=== PATIENT | male | born 1925 | race Caucasian/White ===

== ENCOUNTER 2017-03-30 13:37 | Inpatient (IN) | payer MEDICARE, OTHER ==
[~2017-03-30] VITALS: Ht 175.3 cm; Wt 81.0 kg
[~2017-03-30 13:37] MED LIST: ASPI81TA2 PO; COR625 PO; FURO-3 PO; ZES10 PO
[2017-03-30 13:41] VITALS: BP 184/69; PULSE 62; RESP 20; O2SAT 97
--- NOTE | 2017-03-30 13:51 | ED.REPORT ---
HPI-Trauma Minor / Fall Date of Service Mar 30, 2017 ED Provider: Hammad Covarrubias DO Pt is an 89 year old male with a history of UTI, prostatectomy, hypertension, NH , CHF and pneumonia who is brought to the ED via EMS from assisted living due to a fall. The pt experienced a mechanical fall this morning that was not associated with dizziness. He "got his legs tangled up," lost his balance and fell, hitting the right side of his forehead. The pt admits to right thigh pain but denies headache, LOC or nausea. He takes aspirin daily. Nursing Notes Stated Complaint: GLF/RIGHT THIGH PAIN Chief Complaint: Multiple Trauma/Fall Nursing Notes Reviewed: Yes Allergies: Coded Allergies: No Known Allergies (Unverified Allergy, Unknown, 03/30/17) Scheduled Aspirin (Aspirin) 81 Mg Tablet 81 MG PO DAILY Carvedilol (Carvedilol) 6.25 Mg Tablet 6.25 MG PO BID Citalopram (Citalopram) 20 Mg Tablet 20 MG PO DAILY Furosemide (Furosemide) 40 Mg Tablet 40 MG PO DAILY Lisinopril (Lisinopril) 20 Mg Tablet 20 MG PO DAILY General Time Seen by MD: 13:50 Transferred From: custodial Chief Complaint Fall Hx Obtained From: Patient, EMS Arrived By: Ambulance Onset Occurred: 1 - 4 hours ago Symptom Duration: Since onset Location: Thigh right Quality: Painful Recent Healthcare: No recent hospitalization, Recent doctor visit Similar Sx Previous: No Past Medical History Past Medical History HTN UTI Kidney infection NH Pneumonia Depression Prostate, bladder and rectal cancer Blood tranfusions Reports: Congestive heart failure Past Surgical History Bladder removal Hernia repair Smoking History Former Smoker (quit at age 42) Social History Other Social History: Lives in [facility] Ambulatory Status Independent Review of Systems Respiratory: Denies: Non-productive cough, Shortness of breath Musculoskeletal: Reports: Extremity pain (Right thigh) Neurologic: Denies: Change LOC, Dizziness, Headache Complete sys rev & neg: except as marked. Cardiovascular: Denies: Chest pain GI: Denies: Abdominal pain, Nausea, Vomiting Physical Exam Initial Vital Signs Vital Signs (First) Date Time Temp Pulse Resp B/P Pulse Ox O2 Delivery O2 Flow Rate FiO2 03/30/17 13:41 36.9 62 20 184/69 97 Initial VS: Reviewed General/Constitutional: Awake, Alert, No acute distress Neck: Atraumatic, Supple, Full range of motion Head / Eyes: Atraumatic, Normocephalic, PERRL, EOMI ENT: Atraumatic, Airway patent, Mucous membranes moist Respiratory / Chest: Atraumatic, Breath sounds NL, Breath sounds = bilat, No respiratory distress Cardiovascular: Heart rate NL, Regular rhythm, Heart sounds NL Abdomen: Atraumatic, Soft, Non-tender Back: Atraumatic, Inspection NL, Full range of motion Upper Extremity / MS: Atraumatic, Inspection NL, Full range of motion Lower Extremity / Pelvis / MS: Neurologic intact, Vascular intact Tenderness over distal femur No laceration No abrasion Right leg externally rotated Skin: Color NL, No rash, Warm, Dry Neurologic: Oriented X3, Speech NL, No motor deficits, No sensory deficits Interpretation & Diagnostics Interpretation & Diagnostics: Femur X-Ray 2 views IMPRESSION: Minimally displaced intertrochanteric fracture of the right femur. Dictated by: Essie Bales M.D. on 03/30/2017 at 15:35 Approved by: Essie Bales M.D. on 03/30/2017 at 15:37 PROCEDURE: X-RAY CHEST ONE VIEW, PORTABLE ([id number]) INDICATIONS: preop, h/o chf TECHNIQUE: One view of the chest was acquired. COMPARISON: Located Within [facility], CR, CHEST 2VW, 12/03/2011, 10:03. Outside Film, CT, CHEST/ABD/PELVIS W/CON (PNL), 08/18/2012, 9:57. Located Within [facility] , CT, CT FEMUR RT WO CON, 03/30/2017, 15:54. Located Within [facility], CR, CHEST 1VW (PORTABLE), 12/30/2010, 2:23. FINDINGS: Surgical changes and devices: None. Lungs and pleura: Chronic interstitial prominence. No pleural effusions or pneumothorax. Lungs are clear. Mediastinum: Mediastinal contours appear normal. Heart size is normal. Bones and chest wall: No suspicious bony lesions. Overlying soft tissues appear unremarkable. IMPRESSION: No acute cardiopulmonary disease. Dictated by: Essie Bales M.D. on 03/30/2017 at 17:11 Approved by: Essie Bales M.D. on 03/30/2017 at 17:13 PROCEDURE: CT FEMUR RIGHT W/O CONTRAST ([id number]) INDICATIONS: fall, right femur pain TECHNIQUE: Noncontrast 3 mm axial sections acquired of the right femur, with coronal and sagittal reformats. For radiation dose reduction, the following was used: automated exposure control, adjustment of mA and/or kV according to patient size. COMPARISON: Located Within [facility], CR, XR FEMUR 2VW RT, 03/30/2017, 14:28. FINDINGS: Image quality: Excellent. Bones: There is a comminuted, intertrochanteric fracture of the proximal femur with minimal displacement. Soft tissues: Soft tissue swelling and pain around proximal femur consistent with soft tissue contusion. IMPRESSION: Comminuted, intertrochanteric fracture with minimal displacement. Dictated by: Essie Bales M.D. on 03/30/2017 at 17:07 Approved by: Essie Bales M.D. on 03/30/2017 at 17:10 Lab Results Interpretation Result Diagram: 03/31/17 0542 03/31/17 0542 ECG Interpretation ECG Interpretation: normal sinus with a rate of 77 prolonged UT interval at 237 anterior infarct, old no acute ST/T wave changes Time: 16:02 Interpreted by: ED physician Re-Eval/Medical Decision Med Decision/Clinical Course Initially evaluated the patient and discussed his fall. He has no ecchymosis, abrasion, or laceration over his head, has no head pain, his mentation is normal , and he is not on blood thinners. He also did not use consciousness. A lot of this I elected to forego a head CT, and focus only on the area of concern to the patient. It is unusual that he complained of distal femur pain. There is no fracture in this area, but rather in the intertrochanteric region. After the fracture was noted and I spoke with Dr. Lala, I ordered preoperative labs , chest x-ray, and EKG. She recommends/requests that an echocardiogram be done in the morning given his history of CHF for preoperative clearance, and also recommends that he have a preoperative CT of his femur which I ordered. The case was discussed with the hospitalist who agrees with the plan and will admit the patient. Surgery may be scheduled for tomorrow or Saturday. In the ER he was given Rhame 7.5 mg 1 and his pain improved Source of Hx: Old records Re-Evaluation/Progress #1: Time of Eval: 15:21 Re-Evaluation/Progress Note: Rechecked pt. Pt is unable to use his leg, and it is externally rotated. Re-Evaluation/Progress #2: Time of Eval: 15:45 Patient Status: Condition improved Re-Evaluation/Progress Note: Rechecked pt, who is stable. Discussed all results. Informed pt of plan for admission. Pt understands and agrees with plan for admission. All questions addressed. Consultation #1: Referral / Consult Name: Ihs Lala MD Consulted With: Orthopedic, Surgeon Call Returned at: 15:37 Product Safety Lead: Agrees with plan Note: Discusses case with Dr. Lala, Orthopedic surgeon. Discusses request for hospitalist admission. Echo for cardiac clearance, as well as a type in screen. Will see patient tomorrow. Consultation #2: Referral / Consult Name: Samuel William MD Consulted With: Hospitalist Call Returned at: 16:06 Product Safety Lead: Agrees with eval, Agrees with plan, Accepts admit Note: Spoke with Dr. William, hospitalist, regarding pt's case. Dr. William agrees with the evaluation and agrees to admit the pt. Counseled Regarding: Diagnosis, Lab results, Need for admission Discharge & Departure Impression: Primary Impression: Nondisplaced intertrochanteric fracture of femur Encounter type: initial encounter Fracture type: closed Laterality: right Qualified Code: S72.144A - Nondisplaced intertrochanteric fracture of right femur, initial encounter for closed fracture Additional Impressions: Hypertension Hypertension type: essential hypertension Qualified Code: I10 - Essential ( primary) hypertension Chronic renal insufficiency Chronic kidney disease stage: unspecified stage Qualified Code: N18.9 - Chronic kidney disease, unspecified Disposition: ADMITTED TO HOSPITAL Discharge Condition All VS Reviewed: Yes Condition: Stable Referrals: Edwige Stern MD (PCP) Scribe Attestation Portions of this note were transcribed by Belkys Fuentes and Rufina De Los Santos. I, Dr. Covarrubias personally performed the history, physical exam and medical decision -making; I reviewed and confirmed the accuracy of the information in the transcribed note. copies to: Edwige Stern MD, Gary R DO Mar 30, 2017 13:51 Belkys Fuentes Mar 30, 2017 14:06 RUFINA DE LOS SANTOS Mar 30, 2017 15:55
[2017-03-30] MEDS ORDERED: CITA20TA11 PO (13:53)
[2017-03-30] MEDS ORDERED: ASPI-973 PO (13:58)
[2017-03-30] MEDS ORDERED: CARV6.252 PO (13:58)
[2017-03-30] MEDS ORDERED: FURO40TA4 PO (13:58)
[2017-03-30] MEDS ORDERED: LISI-567 PO (13:58)
[2017-03-30] MEDS ORDERED: HYDROcodone-APAP 7.5-325 mg Tablet PO ONE (14:00)
--- NOTE | 2017-03-30 15:38 | DRSVH ---
PROCEDURE: X-RAY RIGHT FEMUR, TWO VIEWS ([id number]) INDICATIONS: fall, r thigh pain TECHNIQUE: 2 views of the femur were acquired. COMPARISON: None. FINDINGS: Bones: There is intratrochanteric fracture of the right femur with minimal displacement. The hip nathalie nt is anatomically aligned. There is moderate degenerative joint disease in the right hip. Osteopenia . No suspicious bony lesions. Soft tissues: No suspicious soft tissue calcifications or masses. IMPRESSION: Minimally displaced intertrochanteric fracture of the right femur. Dictated by: Essie Bales M.D. on 03/30/2017 at 15:35 Approved by: Essie Bales M.D. on 03/30/2017 at 15:37
[2017-03-30] MEDS ORDERED: HYDROmorphone 0.5 mg/0.5 mL iSecure Syringe IVPUSH PRN ×2 (15:40→17:10)
[2017-03-30] MEDS ORDERED: HYDROcodone-APAP 5-325 mg Tablet PO PRN (16:10)
[2017-03-30] MEDS ORDERED: Alum-Mag Hydrox-Simeth 30 mL Suspension PO PRN (16:10)
[2017-03-30] MEDS ORDERED: Ondansetron 2 mg/mL 2 mL Inj IVPUSH PRN (16:10)
[2017-03-30] MEDS ORDERED: Polyethylene Glycol (PEG) 17 Gm Powder PO PRN (16:10)
--- NOTE | 2017-03-30 16:36 | PCM.HPMED ---
Subjective Date of Service Mar 30, 2017 Primary Provider: Admitting Physician: Primary Care Physician: Edwige Stern MD Attending Physician: History of Present Illness: Mr. 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 Patient said he was walking when he tripped and fell. He said he did hit his head but gently. CXR in ER revealed right intratrochantric fracture. He denied any syncope, chest pain or shortness of breath. He was not sure if he has CHF, however it has been mentioned in the chart. He denies any other major medical issues at this point. He mentioned he uses stomies for urination as well as defecation. Allergies Coded Allergies: No Known Allergies (Unverified Allergy, Unknown, 03/30/17) Constitutional: No: Chills, Fever, Malaise, Other, Sweats, Weakness Eyes: No: Conjunctivae inflammation, Eyelid inflammation, Other, Pain, Redness , Vision change ENT: No: Ear discharge, Ear pain, Mouth pain, Mouth swelling, Nose congestion, Nose discharge, Nose pain, Other, Throat pain, Throat swelling Respiratory: No: Cough, Dry, Hemoptysis, Other, Pleuritic Pain, SOB with excertion, Shortness of breath, Sputum, Wheezing, Wheezing Cardiovascular: No: Chest Pain, Edema, Lt Headedness, Orthopnea, Other, Palpitations, Paroxysmal Noc. Dyspnea Gastrointestinal: : Other (as per HPI) Genitourinary: Positive for: Other (as per HPI) Musculoskeletal: : other (as per HPI) Skin: No: Bruising, Jaundice, Lesions, Other, Rash Neurological: No: Change in speech, Confusion, Incoordination, Numbness, Other , Seizures, Weakness Home Meds Reported Medications Lisinopril 20 Mg Ostskr91 Mg PO DAILY 30 Days Ref 0 03/30/17 Furosemide 40 Mg Lzhiaj84 Mg PO DAILY 03/30/17 Carvedilol 6.25 Mg Tablet6.25 Mg PO BID Ref 0 03/30/17 Aspirin 81 Mg [id number] Mg PO DAILY Ref 0 03/30/17 Citalopram 20 Mg Btuaxj70 Mg PO DAILY Ref 0 03/30/17 Discontinued Reported Medications Furosemide-Expunged Drug, Do Not Renew! 40 Mg Whhyjm08 Mg PO DAILY #30 TAB 40 MG DAILY 01/20/13 Carvedilol-Expunged Drug, Do Not Renew! 6.25 Mg Tablet6.25 Mg PO BID 01/20/13 Aspirin-Expunged Drug, Do Not Renew! 81 Mg Tab81 Mg PO DAILY 01/20/13 Lisinopril-Expunged Drug, Do Not Renew! 10 Mg Uvlhkv01 Mg PO DAILY 01/20/13 PMH HTN UTI Kidney infection [place] Pneumonia Depression Prostate, bladder and rectal cancer (squamous cell). Blood tranfusions Reports: Congestive heart failure Surgical History Bladder/Prostate/Anus/Rectum removal Hernia repair Social History Hx Alcohol Use: No Hx Substance Use: No Hx Tobacco Use: Yes (quit at age 42) Smoking Status: Former Smoker (quit at age 42) Exam Vital Signs Vital Sign - Last Date Time Temp Pulse Resp B/P Pulse Ox O2 Delivery O2 Flow Rate FiO2 03/30/17 13:41 36.9 62 20 184/69 97 Exam Initial VS: Reviewed General/Constitutional: Awake, Alert, No acute distress Neck: Atraumatic, Supple, Full range of motion Head / Eyes: Atraumatic, Normocephalic, PERRL, EOMI ENT: Atraumatic, Airway patent, Mucous membranes moist Respiratory / Chest: Atraumatic, Breath sounds NL, Breath sounds = bilat, No respiratory distress Cardiovascular: Heart rate NL, Regular rhythm, Heart sounds NL Abdomen: Atraumatic, Soft, Non-tender. Stomies present, clean, non infectious Back: Atraumatic, Inspection NL, Full range of motion Upper Extremity / MS: Atraumatic, Inspection NL, Full range of motion Lower Extremity / Pelvis / MS:Right hip pain with motion Lab and Diagnostics X-Rays, CTs and MRIs XR IMPRESSION: Minimally displaced intertrochanteric fracture of the right femur. Assessment & Plan Mr. 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 There is mild to moderate global hypokinesis of the left ventricle. - CXR noted , self read: no pleural effusions or cephalization observed - EKG noted , no acute changes > HTN - exacerbated by pain - pain control + home meds - hydralazine prn if systolic >180, diastolic> 110 > h/0 squamous cell carcinoma s/p resection of bladder, anus, rectum - stomies present, clear as needed > Depression - continue home meds Inpatient admission, likely will stay > 2 days due to complication of this disease process. Pain Evaluation: Adequate Pain Control VTE Prophylaxis: SCDs Resuscitation Status: DNR/DNI:Do Not Resuscitate/Intubate Time spent 35 mins Samuel William MD Mar 30, 2017 16:12
[2017-03-30] MEDS ORDERED: hydrALAZINE 20 mg/mL Inj IV PRN (16:45)
[2017-03-30 16:50] VITALS: BP 149/60; PULSE 75; O2SAT 92
--- NOTE | 2017-03-30 17:11 | DRSVH ---
PROCEDURE: CT FEMUR RIGHT W/O CONTRAST ([id number]) INDICATIONS: fall, right femur pain TECHNIQUE: Noncontrast 3 mm axial sections acquired of the right femur, with coronal and sagittal reformats. Fo r radiation dose reduction, the following was used: automated exposure control, adjustment of mA and /or kV according to patient size. COMPARISON: [facility], CR, XR FEMUR 2VW RT, 03/30/2017, 14:28. FINDINGS: Image quality: Excellent. Bones: There is a comminuted, intertrochanteric fracture of the proximal femur with minimal displacem ent. Soft tissues: Soft tissue swelling and pain around proximal femur consistent with soft tissue contusi on. IMPRESSION: Comminuted, intertrochanteric fracture with minimal displacement. Dictated by: Essie Bales M.D. on 03/30/2017 at 17:07 Approved by: Essie Bales M.D. on 03/30/2017 at 17:10
--- NOTE | 2017-03-30 17:15 | DRSVH ---
PROCEDURE: X-RAY CHEST ONE VIEW, PORTABLE ([id number]) INDICATIONS: preop, h/o chf TECHNIQUE: One view of the chest was acquired. COMPARISON: [facility], CR, CHEST 2VW, 12/03/2011, 10:03. Outside Film, CT, CHEST/ABD/PE LVIS W/CON (PNL), 08/18/2012, 9:57. [facility], CT, CT FEMUR RT WO CON, 03/30/2017, 15:54. [facility], CR, CHEST 1VW (PORTABLE), 12/30/2010, 2:23. FINDINGS: Surgical changes and devices: None. Lungs and pleura: Chronic interstitial prominence. No pleural effusions or pneumothorax. Lungs are clear. Mediastinum: Mediastinal contours appear normal. Heart size is normal. Bones and chest wall: No suspicious bony lesions. Overlying soft tissues appear unremarkable. IMPRESSION: No acute cardiopulmonary disease. Dictated by: Essie Bales M.D. on 03/30/2017 at 17:11 Approved by: Essie Bales M.D. on 03/30/2017 at 17:13
[2017-03-30 17:21] LABS: BASOPHILS % (AUTO) 0.2 % (0-3); EOSINOPHILS % (AUTO) 0.3 % (0-5); MONOCYTES % (AUTO) 4.9 % (4-12); Mean Corpuscular Hemoglobin 28.8 pg (27.0-35.0); Mean Corpuscular Volume 87.2 fL (81-100); NEUTROPHILS % (AUTO) 89.4 % (40-74); Platelet Count 162 bil/L (150-400)
[2017-03-30 17:45] LABS: Magnesium 2.1 mg/dL (1.6-2.6)
[2017-03-30 17:48] VITALS: BP 181/80; PULSE 75; RESP 17; O2SAT 94
[2017-03-30] MEDS: HYDROcodone-APAP 7.5-325 mg Tablet PO PRN (19:21)
[2017-03-30] MEDS: HYDROmorphone 0.5 mg/0.5 mL iSecure Syringe IVPUSH PRN (20:14)
[2017-03-30 20:27] LABS: APPEARANCE,URINE HAZY (CLEAR,HAZY); COLOR,URINE YELLOW (YELLOW); OCCULT BLOOD,URINE TRACE (NEGATIVE)
[2017-03-30 20:28] LABS: UROBILINOGEN,URINE NORMAL (NORMAL)
[2017-03-30 20:40] VITALS: BP 163/75; PULSE 87; RESP 16; O2SAT 92
[2017-03-30 21:37] LABS: APPEARANCE,URINE HAZY (CLEAR,HAZY); COLOR,URINE YELLOW (YELLOW); OCCULT BLOOD,URINE NEGATIVE (NEGATIVE); UROBILINOGEN,URINE NORMAL (NORMAL)
[2017-03-31 01:00] VITALS: BP 173/78; PULSE 69; RESP 16; O2SAT 94
[2017-03-31] MEDS: HYDROmorphone 0.5 mg/0.5 mL iSecure Syringe IVPUSH PRN ×5 (01:19→21:29)
--- NOTE | 2017-03-31 05:39 | NUR ---
Pain Pt. reporting pain at fracture site. IV dilaudid 1mg given and effective for pain. Will continue to monitor.
[2017-03-31 06:00] VITALS: BP 142/52; PULSE 70; RESP 16; O2SAT 92
[2017-03-31 06:28] LABS: Mean Corpuscular Hemoglobin 29.2 pg (27.0-35.0); Mean Corpuscular Volume 88.9 fL (81-100); Platelet Count 141 bil/L (150-400)
[2017-03-31 06:29] LABS: BASOPHILS % (AUTO) 0.6 % (0-3); EOSINOPHILS % (AUTO) 2.6 % (0-5); MONOCYTES % (AUTO) 13.7 % (4-12); NEUTROPHILS % (AUTO) 75.5 % (40-74)
[2017-03-31 06:38] LABS: INR 1.01 ratio
[2017-03-31] MEDS ORDERED: 0.9% Sodium Chloride 1,000 ML IV SCH (07:30)
[2017-03-31 08:42] VITALS: BP 155/72; PULSE 73; RESP 18; O2SAT 94
--- NOTE | 2017-03-31 09:21 | PCM.PNMED ---
Subjective Date of Service Mar 31, 2017 Subjective Patient seen and examined. Pain controlled. Vitals noted. Exam Vital Signs Vital Sign - Last Date Time Temp Pulse Resp B/P Pulse Ox O2 Delivery O2 Flow Rate FiO2 03/31/17 08:42 73 18 155/72 94 Room Air 03/31/17 06:00 36.9 Exam General/Constitutional: Awake, Alert, No acute distress ENT: Atraumatic, Airway patent, Mucous membranes moist Respiratory / Chest: Atraumatic, Breath sounds NL, Breath sounds = bilat, No respiratory distress Cardiovascular: Heart rate NL, Regular rhythm, Heart sounds NL Abdomen: Atraumatic, Soft, Non-tender. Stomies present, clean, non infectious Upper Extremity / MS: Atraumatic, Inspection NL, Full range of motion Lower Extremity / Pelvis / MS:Right hip pain with motion Lab and Diagnostics Result Diagram: 03/31/1742 03/31/17541 X-Rays, CTs and MRIs XR IMPRESSION: Minimally displaced intertrochanteric fracture of the right femur. CT LE IMPRESSION: Comminuted, intertrochanteric fracture with minimal displacement. Assessment & Plan Mr. Alberts is a 89 yo male with pmh of squamous cell carcinoma (bladder) s/p resection of prostate, bladder, rectum and anus, HTN, who is being admitted for a hip fracture(right side) > Right hip fracture - XR and CT noted as above - pain control - ortho consulted from ER , recs: cardiac echo,NPO - will check Vit D levels > h/o chf - not in acute exacerbation - echo from 12/2015 : ejection fraction is estimated to be 40-45%, which slightly improved since prior study. There is mild to moderate global hypokinesis of the left ventricle. - CXR noted , self read: no pleural effusions or cephalization observed - EKG noted , no acute changes > CKD, with possible FELICE - basline Cr unknown - Cr trended up 1.47 > 1.63 - will continue to monitor > H/O UTI - no signs and symptoms - moderate bacteria - considering h/o bladder surgery, stomy, and utis, will treat prophylactically as discussed with ortho > HTN - exacerbated by pain - pain control + home meds - hydralazine prn if systolic >180, diastolic> 110 > h/0 squamous cell carcinoma s/p resection of bladder, anus, rectum - stomies present, clear as needed > Depression - continue home meds Inpatient admission, likely will stay > 2 days due to complication of this disease process. VTE Prophylaxis: SCDs VTE Mechanical Devices: Intermittant Pneumatic CD Resuscitation Status: DNR/DNI:Do Not Resuscitate/Intubate Time spent 35 mins Samuel William MD Mar 31, 2017 09:21
--- NOTE | 2017-03-31 10:16 | DRSVH ---
[facility] [address] [place] [address] Echocardiogram Report Name: LEATHA ANTHONY JStudy Date : 03/31/2017 He ight: 71 in Hospital Exam Location: [facility] ight: 178 lb Gender: Male BS A: 2.0 m2 : 1925 Age: 89 yrs BP : 142/52 mmHg Reason For Study: Pre-surgical evaluation Ordering Physician: Julio Cesar Riggsist Performed By: Yesi Bejarano Referring Physician: Gabo Colón Interpretation Summary 1. MIldly dilated left ventricle with mildly increased wall thickness and an estimated EF of 50% 2. Normal right ventricular size and systolic function. 3. Evidence for mild aortic stenosis and mild insufficiency When compared to the previous study, no significant change Procedure: A two-dimensional transthoracic echocardiogram with color flow and Doppler was performed. Most of the acoustic windows were suboptimal, but the best imaging was obtained from the apical window. Comparison is made with the echocardiogram of 12/29/2015. The patient was in normal sinus rhythm during the exam. Left Ventricle: The left ventricle is mildly dilated. Left ventricular wall thickness is mildly increased. Left ventricular ejection fraction is estimated to be 50%. There are no obvious focal wall motion abnormalities noted but poor endocardial definition reduces the sensitivity for the detection of such. Assessment of diastolic parameters indicates a relaxation abnormality of the left ventricle, consistent with normal filling pressures. Right Ventricle: The right ventricle is normal in size and function. Atria: The left atrium is mildly dilated. The right atrium is normal in size. Mitral Valve: The leaflets appear mildly thickened with mild restriction of excursion. There is trace mitral regurgitation. Aortic Valve: The aortic valve is not well visualized. The aortic valve is mildly calcified. The calculated aortic valve area is 1.9 cm2. The peak aortic velocity is 2.3 m/sec. The aortic valve mean gradient is 12 mmHg. The peak aortic velocity on the previous exam was 2.2 m/sec. There is mild aortic regurgitation. Tricuspid Valve: The tricuspid valve is not well visualized, but is grossly normal. Pulmonary artery pressures cannot be estimated because of the lack of a measurable TR jet velocity. Pulmonic Valve: The pulmonic valve is not well visualized. Great Vessels: The aortic root is at the upper limits of normal in size. The ascending aorta is normal in size. The IVC is of normal diameter and collapses greater than 50% with a sniff. This suggests a low right atrial pressure of 3 mm Hg. Pericardium/ Pleura There is no pericardial effusion. MMode/2D Measurements & Calculations LVIDd: 5.9 cm LA A2 area RA long axis: 6.1 cm LVOT diam: 2.1 cm LVIDs: 4.8 cm AoV Openin.2 cm FS: 19.2 % RA area: 20.4 cm Ao root diam: 4.0 cm IVSd: 1.5 cm LA A4 area RA vol: 57.8 ml Aortic Jxn: 3.3 cm LVPWd: 1.1 cm RA : 29.4 ml/m2 asc Aorta Diam: 3.4 cm LA length (vol) LA vol: 92.6 ml LA vol index IVC diam: 1.4 cm LVAd ap4 LVAd ap2 LV dean. diameter/BSA LV sys. diameter/BSA : 33.8 2m : 29.4 cm (cm/m^2): 3.0 (cm/m^2): 2.4 LVLd ap2: 8.6 cm EDV(MOD-sp2) EDV(sp2-el) ESV(MOD-sp2) EF(MOD-sp2) RVD1 (basal) TAPSE: 2.6 cm Doppler Measurements & Calculations Ao V2 max MV E max anish MV E/A: 0.61 MV dec time: 0.36 sec : 229.4 cm/sec : 79.8 cm/sec Med Peak E' Anish Ao max PG MV A max anish : 21.1 mmHg : 130.8 cm/sec E/E' med: 18.9 Ao mean PG MV P1/2t Lat Peak E' Anish : 12.4 mmHg : 107.5 msec LVOT Max Anish E/E' lat: 10.9 : 113.3 cm/sec E/e' average NANCY(I,D): 1.9 cm sev ratio: 0.51 AI P1/2t : 478.1 msec AI dec slope : 272.9 cm/s2c MV P1/2t max anish Ao V2 mean LV V1 max PG NANCY indexed to BSA : 168.1 cm/sec (cm^2/m^2): 0.94 Ao V2 VTI: 53.7 cmLV V1 VTI MVA(P1/2t): 2.0 cm2 : 27.7 cm NANCY(V,D): 1.8 cm2 Reading Physician:10:15 AM
--- NOTE | 2017-03-31 10:56 | CONS ---
[address] [address] CONSULTATION REPORT PATIENT: LEATHA ANTHONY : 1925 MR#: [id number] ADMIT: 03/30/2017 JOB ID: [id number] DATE OF SERVICE: 03/31/2017 CHIEF COMPLAINT: I was asked to see this 89-year-old male in orthopedic consultation by Dr. Hammad Covarrubias in the emergency department and subsequently by Dr. Samuel William on the hospitalist service for comminuted right intertrochanteric femoral fracture. This patient who does have some additional medical problems fell while in assisted living while he was out walking. His shoe stuck on the concrete and he fell sustaining a comminuted right intertrochanteric femoral fracture. The patient denied any loss of consciousness, headache, or dizziness. CURRENT MEDICATIONS: Include: 1. Lisinopril. 2. Lasix. 3. Carvediol. 4. Aspirin. 5. Citalopram. ALLERGIES: None. MEDICAL HISTORY: Pertinent for history of UTI, hypertension, kidney infection, prior MN, pneumonia, depression, prostate/bladder cancer, rectal cancer, squamous cell status post resection, prior blood transfusions, and history of congestive heart failure. He has also had a hernia repair along with the bladder, prostate, anus, and rectal resections. SOCIAL HISTORY: The patient does not smoke or drink. He lives in assisted living. REVIEW OF SYSTEMS: HEENT: No headache or dizziness. No acute visual changes. Respiratory: No shortness of breath. Cardiovascular: No chest pain. GI: No change in GI issues. : History of urinary tract infections. Musculoskeletal pain in the right hip. Neurologic no lateralizing neurologic signs. PHYSICAL EXAMINATION: Male 175 cm, 81 kg. The patient is alert and oriented. Right leg is just slightly shortened. Peripheral pulses are full. Motor and sensory testing intact. The patient is comfortable in bed as long he is not moving his hip. IMAGING: X-rays of the pelvis and CT scan show a comminuted right intertrochanteric femoral fracture. X-rays down to the distal portion of the femur showed no other abnormalities. The patient has had a prior cardiac echo in 2016 which showed a cardiac ejection fracture of 40 to 45%. A repeat cardiac echo has been ordered and done and just official read pending. Chest x-ray showed no acute pulmonary disease. Femur x-rays and CT scan showed comminuted right intertrochanteric femoral fracture with mild displacement. LABORATORY TESTING: White count 8900, hemoglobin 12.8, hematocrit 38.8, and platelet count 862,000 on admission. Repeat labs today white count 5400, hemoglobin 12.1, hematocrit 36.8, and platelet count 141,000. Electrolytes on admission: Sodium 140, potassium 4.2, chloride 102, CO2 of 21, BUN 32, creatinine 1.47. Liver function tests within normal limits. Repeat electrolytes on March 31: Sodium 140, potassium 4.5, chloride 101, CO2 25, BUN 37, creatinine 1.63, and glucose of 100. Urinalysis on admission showed many bacteria. Urine culture needs to be sent. PT of 10.7. INR 1.00. Repeat PT 10.8, INR 1.01. IMPRESSION: 1. Comminuted right intertrochanteric femoral fracture. 2. History of hypertension. 3. History of congestive heart failure in the past. 4. Depression treated. 5. Probable urinary tract infection. PLAN: The patient will require open reduction and internal fixation of the fracture. Currently there are multiple surgeries being planned for surgery today. Due to the time constraints rather than trying to do this patient very late tonight we will plan to do him in the trauma block tomorrow with a locked intramedullary heidy. I have explained the risks of bleeding, infection, pain, and stiffness and possibility for damage to surrounding neurovascular structures as well as potential for delayed union, and potential for additional surgery in the future. Hopefully all these risks will be minimal. There is also the risk for DVT, pulmonary emboli, MN, and a cardiopulmonary event. Surgical consent has been signed. I will also discuss the case again with the hospitalist service since I believe the patient is going to need some antibiotic treatment for anticipated urinary tract infection with his current urinalysis.
[2017-03-31] MEDS: HYDROcodone-APAP 7.5-325 mg Tablet PO PRN ×2 (14:21→18:21)
[2017-03-31] MEDS: cefTRIAXone Inj 1,000 MG in Dextrose 5% Minibag Plus 50 ML IV SCH (14:22)
[2017-03-31 15:18] VITALS: BP 156/62; PULSE 86; RESP 18; O2SAT 91
--- NOTE | 2017-03-31 15:32 | NUR ---
Social Work- Initial Assessment/ Multidisciplinary Rounds Data: See Initial Assessment and Advance Directive Intervention for additional information. Pt to receive surgery tomorrow. Pt is likely to require SNF at d/c given nature of admission. PT will evaluate pt after surgery. Pt is a 89 year old admitted 03/31/17 for right intertrochanteric fracture per H&P. Pt's insurance is [email or web address]. Pt's PCP is Haleigh Stern MD. Pt's readmit risk score is not listed at this time. SW met with pt at bedside regarding discharge plan, SW role explained. Pt alert and oriented x3. Pt's capacity for self-care assessed. Pt resides in [place] in a home alone. Pt is independent with ADLs and self-care. Pt uses a cane at baseline. Pt drives. Pt has no history with services. Pt has history with a SNF in [place]. Pt has DPOA on file. SW discussed likely SNF recommendation with pt and pt is agreeable, was expecting it. No SNF orders have been received at this time. SW provided Discharge planning Checklist and requested that pt contact [employer]. SW provided phone number and plan on whiteboard. Pt agreeable. SW will continue to follow. Assessment: Pt who is independent with ADLs and self-care, likely to require SNF at d/c. Plan: Pt is likely to require SNF at d/c, pt is agreeable and was expecting this. No SNF choice has been made, no orders received at this time. PT will evaluate pt after surgery. SW will continue to follow for d/c planning needs. Teresa Hodges [facility] Addendum: 03/31/17 at 1537 by KENDRA HODGES Amended: Links added.
--- NOTE | 2017-03-31 19:40 | NUR ---
Activity Pt NPO for anticipated OR; pt stating hungry and family anxious re: surgery - frequently asking when surgery time is. Attempted to keep family as informed as possible, aware that she will not be going to OR until later in evening. Pt denies pain/nausea; states she is hungry. Minimal mobility d/t dizziness, RADHA in place and voiding per BSC. Await OR, care continues. Addendum: 03/31/17 at 1941 by WILMER SHERIDAN RN WRONG PATIENT
--- NOTE | 2017-03-31 19:45 | NUR ---
Comfort/OR plan Pt stating pain 5/10 continuously; states 5 is okay number but pain with movement. Surgery pushed to 04/01/17 - able to eat lunch/dinner, aware of NPO at midnight. Pt stating uncomfortable in the bed as he keeps slipping down. Offered new bed to pt. Refused and later agreeable. Pt placed on P500 bed, vargas in place. Call light in reach. Pleasant and cooperative with care. Await OR tomorrow. Care continues.
[2017-03-31 20:03] VITALS: BP 164/70; PULSE 92; RESP 18; O2SAT 94
[2017-04-01] VITALS (10 sets, daily range): BP systolic 104–200; BP diastolic 51–70; PULSE 64–92; RESP 16–21; O2SAT 94–98
--- NOTE | 2017-04-01 05:43 | NUR ---
HTN Pt. continues to have HTN during this shift with 200/70 @ 0500 so the On-Call Physician was paged. He order one dose of Coreg. All other VSS and WCTM.
[2017-04-01 05:45] LABS: Mean Corpuscular Volume 89 fL (81-100)
[2017-04-01 05:46] LABS: BASOPHILS % (AUTO) 0.4 % (0-3); EOSINOPHILS % (AUTO) 4.3 % (0-5); MONOCYTES % (AUTO) 12.6 % (4-12); NEUTROPHILS % (AUTO) 74.9 % (40-74); Platelet Count 133 bil/L (150-400)
[2017-04-01] MEDS ORDERED: CeFAZolin Inj 2 GM in IV Premix 1 EACH IV ONE ×2 (06:00→14:00)
--- NOTE | 2017-04-01 08:57 | PCM.PNMED ---
Subjective Date of Service Apr 01, 2017 Subjective Patient seen and examined. He is doing ok. One time elevated BP noted. Normalized. Exam Vital Signs Vital Sign - Last Date Time Temp Pulse Resp B/P Pulse Ox O2 Delivery O2 Flow Rate FiO2 04/01/17 08:29 36.6 64 18 140/52 94 Room Air Intake and Output 03/31/17 03/31/17 04/01/17 Cumulative From/Thru 15:00 23:00 07:00 03/30/17 13:41 - 04/01/17 05:57 Intake Total 361 ml 450 ml 600 ml 1411 ml Output Total 600 ml 450 ml 775 ml 1825 ml Balance -239 ml 0 ml -175 ml -414 ml Intake Oral 300 ml 450 ml 600 ml 1350 ml IV Total 61 ml 61 ml Output Urine Total 450 ml 450 ml 675 ml 1575 ml Stool Total 150 ml 100 ml 250 ml # Bowel Movements 1 1 Exam General/Constitutional: Awake, Alert, No acute distress ENT: Atraumatic, Airway patent, Mucous membranes moist Respiratory / Chest: Atraumatic, Breath sounds NL, Breath sounds = bilat, No respiratory distress Cardiovascular: Heart rate NL, Regular rhythm, Heart sounds NL Abdomen: Atraumatic, Soft, Non-tender. Stomies present, clean, non infectious Upper Extremity / MS: Atraumatic, Inspection NL, Full range of motion Lower Extremity / Pelvis / MS:Right hip pain with motion Lab and Diagnostics Result Diagram: 04/01/17 0525 04/01/17 0525 X-Rays, CTs and MRIs XR IMPRESSION: Minimally displaced intertrochanteric fracture of the right femur. CT LE IMPRESSION: Comminuted, intertrochanteric fracture with minimal displacement. Cardiac Echo Impressions Interpretation Summary 1. MIldly dilated left ventricle with mildly increased wall thickness and an estimated EF of 50% 2. Normal right ventricular size and systolic function. 3. Evidence for mild aortic stenosis and mild insufficiency When compared to the previous study, no significant change Assessment & Plan Mr. Alberts is a 89 yo male with pmh of squamous cell carcinoma (bladder) s/p resection of prostate, bladder, rectum and anus, HTN, who is being admitted for a hip fracture(right side) > Right hip fracture - XR and CT noted as above - pain control - ortho consulted from ER , surgery planned for today - will check Vit D levels > h/o chf - not in acute exacerbation - echo as noted above - CXR noted , self read: no pleural effusions or cephalization observed - EKG noted , no acute changes > CKD, with possible FELICE, resolved - basline Cr likely 1.4-1.6 - Cr trended up 1.47 > 1.63 > 1.53 - will continue to monitor > H/O UTI - no signs and symptoms - moderate bacteria - considering h/o bladder surgery, stomy, and utis, will treat prophylactically as discussed with ortho > HTN - exacerbated by pain - pain control + home meds - hydralazine prn if systolic >180, diastolic> 110 > h/0 squamous cell carcinoma s/p resection of bladder, anus, rectum - stomies present, clear as needed > Depression - continue home meds Inpatient admission, likely will stay > 2 days due to complication of this disease process. VTE Prophylaxis: SCDs VTE Mechanical Devices: Intermittant Pneumatic CD Resuscitation Status: DNR/DNI:Do Not Resuscitate/Intubate Time spent 35 mins Samuel William MD Apr 01, 2017 08:57
[2017-04-01] MEDS: cefTRIAXone Inj 1,000 MG in Dextrose 5% Minibag Plus 50 ML IV SCH (11:59)
[2017-04-01] MEDS: HYDROmorphone 0.5 mg/0.5 mL iSecure Syringe IVPUSH PRN ×2 (11:59→22:10)
--- NOTE | 2017-04-01 13:15 | NUR ---
Off Unit to OR at 1300. A&Ox3, VSS, IV SL, Ostomies emptied, SCDs on, Consent signed 03/31/17, Watch and Lif[employer] necklace at bedside, NPO since midnight, Pain minute, Left unit via bed, Son present and went up to preop suite with pt. Chart with pt. Report given to OR, JOHNNY Patel prior to pt pickup. Dr. Lala present in room prior to pickup to answer any remaining questions. Await pt return. Addendum: 04/01/17 at 1951 by WILMER SHERIDAN RN Returned to unit at ~1720 via bed. A&O, little confused as to why he was here, after settled into bed. talking, but tired. Dressing to hip CDI - two bulky abd dressings with hypafix. IV SL patent. Ice to hip. Stated not hungry - wanting to sleep. Stating back pain - repositioned onto right side. Addendum: 04/01/17 at 1952 by WILMER SHERIDAN RN on 2L NC = ASSISTANT CHIEF NURSING OFFICER requested to find CPOx. CAll light in reach. Care continues.
[2017-04-01] MEDS ORDERED: Phenylephrine 10,000 mCg/mL Inj ONE (13:47)
[2017-04-01] MEDS ORDERED: Neostigmine 1 mg/mL 10 mL Inj ONE ×2 (13:47→15:48)
[2017-04-01] MEDS ORDERED: Propofol 10 mg/mL 20 mL Inj ONE ×2 (13:47→15:48)
[2017-04-01] MEDS ORDERED: Rocuronium 10 mg/mL 5 mL Inj ONE ×2 (13:47→15:48)
[2017-04-01] MEDS ORDERED: Lactated Ringer's 1,000 ML IV ONE ×2 (13:47→16:10)
[2017-04-01] MEDS ORDERED: EPHEDrine/NS 5 mg/mL 5 mL Syringe ONE (13:47)
[2017-04-01] MEDS ORDERED: fentaNYL-PF 50 mCg/mL 2 mL Inj ONE ×2 (13:47→15:48)
[2017-04-01] MEDS ORDERED: Glycopyrrolate 0.2 mg/mL 5 mL Inj ONE (13:47)
[2017-04-01] MEDS ORDERED: Bupivacaine-MPF 0.5% 30 mL Inj INFILTRATE ONE (13:55)
[2017-04-01] MEDS ORDERED: HYDROmorphone 1 mg/mL Inj IVPUSH PRN (14:30)
[2017-04-01] MEDS ORDERED: EPHEDrine Sulfate 50 mg/mL Inj IVPUSH PRN (14:30)
[2017-04-01] MEDS ORDERED: Phenylephrine 10,000 mCg/mL Inj IVPUSH PRN (14:30)
[2017-04-01] MEDS ORDERED: fentaNYL-PF 50 mCg/mL 2 mL Inj IVPUSH PRN (14:30)
[2017-04-01] MEDS ORDERED: Lactated Ringer's 500 ML IV PRN (14:30)
[2017-04-01] MEDS ORDERED: Dexamethasone 4 mg/mL Inj IVPUSH PRN (14:30)
[2017-04-01] MEDS ORDERED: Ondansetron 2 mg/mL 2 mL Inj IVPUSH PRN (14:30)
[2017-04-01] MEDS ORDERED: Lactated Ringer's 1,000 ML IV SCH (14:30)
[2017-04-01] MEDS ORDERED: MetoCLOpramide 5 mg/mL 2 mL Inj IVPUSH PRN (14:30)
--- NOTE | 2017-04-01 14:30 | PCM.HPANE ---
Patient Data Date of Service: Apr 01, 2017 ([id number]) Surgeon Admitting Provider:Samuel William MD Attending Provider:Samuel William MD Primary Care Physician:Edwige Stern MD Other Provider: Reason for Visit Rintertrochanteric Fracture Ht/WT & BMI Height (Feet): 5 Height (Inches): 9.00 Weight (Kilograms): 81.000 Body Mass Index 26.45 Allergies Coded Allergies: No Known Allergies (Unverified Allergy, Unknown, 03/30/17) Past Anesthesia History Anesthesia History: Denies:: Anesthesia Reactions Diabetes History Hx Diabetes?: No MRSA MRSA: No Medications Home Meds Incl Beta Satya: Yes Date Beta Satya Taken: Apr 01, 2017 Time Beta Satya Taken: 530 Reported Medications Lisinopril 20 Mg [id number] Mg PO DAILY 30 Days Ref 0 03/30/17 Furosemide 40 Mg [id number] Mg PO DAILY 03/30/17 Carvedilol 6.25 Mg Tablet6.25 Mg PO BID Ref 0 03/30/17 Aspirin 81 Mg Xriiao43 Mg PO DAILY Ref 0 03/30/17 Citalopram 20 Mg Kgccrv81 Mg PO DAILY Ref 0 03/30/17 Discontinued Reported Medications Furosemide-Expunged Drug, Do Not Renew! 40 Mg Mbcjyb10 Mg PO DAILY #30 TAB 40 MG DAILY 01/20/13 Carvedilol-Expunged Drug, Do Not Renew! 6.25 Mg Tablet6.25 Mg PO BID 01/20/13 Aspirin-Expunged Drug, Do Not Renew! 81 Mg Tab81 Mg PO DAILY 01/20/13 Lisinopril-Expunged Drug, Do Not Renew! 10 Mg [id number] Mg PO DAILY 01/20/13 History History of ENT Problems?: Yes HEENT History: Positive for:: Sinus Problem (seasonal allergies) Denies:: Cataracts Dysphagia Glaucoma Denture Type: Full- Upper Full- Lower Teeth Condition: No Teeth Hx of Heart Problems?: Yes Cardiovascular History: Positive for:: Congestive Heart Failure (ef 30-35) Edema Hypertension Irregular Heartbeat Denies:: AICD Abdominal Aortic Aneurism Atrial Fibrillation Cardiac Surgery Chest Pain Coronary Artery Disease Heart Murmur Pacemaker Peripheral Vascular Rheumatic Fever Thrombophlebitis Valvular Heart Disease Hx of Respiratory Problem?: No Respiratory History: Denies:: Asthma COPD Chest Surgery Dyspnea Emphysema Hemoptysis Pneumonia Tuberculosis Hx Neurologic Problems?: No Neurological History: Positive for:: Headaches Hx of GI Problems?: No Hx of Problems?: Yes Genitourinary History: Positive for:: Urinary Tract Infection Denies:: HX of Hemodialysis Kidney Stones HX of Peritoneal Dialysis: No Male Hx: Positive for:: Prostate Problems (prostatectomy) Denies:: Scrotal Mass Testicular Surgery Hx Musculoskeletal Problems?: No Musculoskeletal History: Denies:: Back Injury Musculoskeletal Trauma Hx of Psycho/Social Problems?: Yes Psycho Social History: Positive for:: Hx Depression Denies:: Anxiety Bipolar Disorder Suicide Attempt Hx Surgeries?: Yes (BLADDER REMOVAL, HERNIA REPAIR) Hx Any Other Health Problems?: Yes Other History: Positive for:: Cancer (prostate, bladder, rectal) Hospitalization (kidney infection; prostate, bladder, & rectum removal surgery ) Denies:: Endocrine Disease Thyroid Disease History Blood Transfusions: Positive for:: Accept Blood Products? Denies:: Blood Transfuse Reaction Blood Transfusions Hx Diabetes: No Hx Alcohol Use: NoHx Substance Use: No Smoking Status: Former Smoker (quit at age 42) Have You Smoked inLast 12 mo: No Stop/Bang Treated for Sleep Apnea?: No Do You Have a CPAP Machine?: No S-Snoring: Do You Snore Loudly: Yes T-Tired: feel tired, fatigued: No O-Obsered: Observed not breath: No P-Blood Pressure: treated: Yes B- Body Mass Index > 35 kg/m2: No A- Age over 50: Yes N- Neck Large Circumference: No G- Gender Male: Yes EDWIGE Total Score: 3 Risk Assessment Category Category 1A: Patient has history of documented sleep apnea, and HAS NOT received any narcotic, sedative or anesthesia administration during this stay. Category 1B: Patient has history of documented sleep apnea, and HAS received any narcotic , sedative or anesthesia administration during this stay Category 2: Patient has SUSPECTED Obstructive Sleep Apnea, and HAS received any narcotic , sedative or anesthesia administration during this stay. Category 3: Patient has SUSPECTED Obstructive Sleep Apnea and HAS NOT received narcotic, sedative or anesthesia administration during this stay. Category 4: Outpatient in Procedural Areas with known sleep apnea or who screen positive for High Risk via the STOP/BANG questionnaire. Exam Exam Vital Signs Vital Signs Date Time Temp Pulse Resp B/P Pulse Ox O2 Delivery O2 Flow Rate FiO2 04/01/17 08:29 36.6 64 18 140/52 94 Room Air General Appearance: Alert, Oriented X3, Cooperative, No Acute Distress HEENT/AIRWAY: MP 2 Lungs: Clear to Auscultation Heart: Exam Unremarkable Meds/Labs/Diagnostics Admission Meds Current Medications Cefazolin Sodium/ Dextrose/Premix (Ancef Inj/IV Premix) 50 ml @ 100 mls/hr PREOP ONCE IV Last administered on 04/01/17 05:56; Start 04/01/17 at 06:00; Stop 04/01/17 at 06:29; Status DC Carvedilol 6.25 mg 6.25 mg BID PO Last administered on 04/01/17 05:31; Start 04/01/17 at 05:27 Lactated Ringer's (Lr) 1,000 ml @ ud STK-MED ONCE IV Last administered on 04/01 13:47; Start 04/01/17 at 13:47; Stop 04/01/17 at 14:19; Status DC Labs Test 03/30/17 16:30 03/30/17 18:15 03/31/17 05:42 04/01/17 05:25 Magnesium Level 2.1mg/dL (1.6-2.6) Total Bilirubin 0.4mg/dL (0.0-1.2) Aspartate Amino Transf (AST/SGOT) 20U/L (0-50) Alanine Aminotransferase (ALT/SGPT) 13U/L (0-44) Alkaline Phosphatase 91U/L (25-160) Total Protein 7.4g/dL (6.4-8.4) Albumin 3.9g/dL (3.4-5.0) Urine Color Yellow (YELLOW) Urine Appearance Hazy (CLEAR,HAZY) Urine pH 7.0 (5.0-8.0) Urine Specific Walker 1.015 (1.003-1.035) Urine Protein Negativemg/dL (NEG,TRACE) Urine Glucose (UA) Negativemg/dL (NEGATIVE) Urine Ketones Negativemg/dL (NEGATIVE) Urine Occult Blood Negative (NEGATIVE) Urine Nitrite Negative (NEGATIVE) Urine Bilirubin Negative (NEGATIVE) Urine Urobilinogen Normalmg/dL (NORMAL) Urine Leukocyte Esterase Negative (NEGATIVE) Urine RBC 0-2/hpf (0-2) Urine WBC 0-5/hpf (0-5) Urine Epithelial Cells None/hpf (NONE-MOD) Urine Crystals Amorphous urates (NONE Urine Bacteria Moderate/hpf (NONE-FEW) Urine Hyaline Casts None/lpf (NONE) Urine Granular Casts None seen (NONE SEEN) Urine Waxy Casts None seen (NONE SEEN) Urine Red Blood Cell Casts None seen (NONE SEEN) Urine White Blood Cell Casts None seen (NONE SEEN) Urine Mucus None seen (None Seen) Urine Trichomonas None seen (NONE SEEN) Urine Yeast None (NONE SEEN) Urinalysis Comment None Urine Culture Reflexed Indicated Prothrombin Time 10.8sec (8.1-12.5) Prothromb Time International Ratio 1.01ratio Activated Partial Thromboplast Time 28.9sec (22.8-33.0) White Blood Count 7.1th/mm3 (3.8-10.1) Red Blood Count 4.04mil/mm3 (4.40-5.80) Hemoglobin 11.7g/dL (13.8-17.2) Hematocrit 35.8% (41.0-50.0) Mean Corpuscular Volume 89fL (81-100) Mean Corpuscular Hemoglobin 29.0pg (27.0-35.0) Mean Corpuscular Hemoglobin Concent 32.7% (32.0-37.0) Red Cell Distribution Width 13.9% (12.3-15.4) Platelet Count 133bil/L (150-400) Neutrophils (%) (Auto) 74.9% (40-74) Lymphocytes (%) (Auto) 7.8% (14-46) Monocytes (%) (Auto) 12.6% (4-12) Eosinophils (%) (Auto) 4.3% (0-5) Basophils (%) (Auto) 0.4% (0-3) Sodium Level 141mEq/L (134-144) Potassium Level 4.1mEq/L (3.5-5.2) Chloride Level 105mEq/L (97-108) Carbon Dioxide Level 24mmol/L (18-29) Blood Urea Nitrogen 33mg/dL (8-27) Creatinine 1.53mg/dL (0.76-1.27) Estimat Glomerular Filtration Rate 46mL/min (>59) Glucose Level 111mg/dL (60-99) Calcium Level 8.5mg/dL (8.5-10.1) Plan Impression Patient chart reviewed, patient interviewed and anesthestic plan with risks, benefits, and alternatives discussed, and informed consent obtained. ASA Physical Status: ASA3 Severe Disease Anesthetic Plan: GA, Regional Block (fascia iliaca) Bene/Risks/Altern/Consents: Yes HP Complete Prior to Induction: Yes Donnell Figueroa MD Apr 01, 2017 14:30
[2017-04-01] MEDS ORDERED: Glycopyrrolate 0.2 MG/ML 1mL Inj ONE (15:48)
[2017-04-01] MEDS ORDERED: Ondansetron 2 mg/mL 2 mL Inj ONE (15:48)
[2017-04-01] MEDS: 0.9% Sodium Chloride 1,000 ML IV SCH (16:59)
[2017-04-01] MEDS ORDERED: HYDROcodone-APAP 5-325 mg Tablet PO PRN (17:00)
--- NOTE | 2017-04-01 17:03 | DRSVH ---
PROCEDURE: X-RAY RIGHT FEMUR, TWO VIEWS ([id number]) INDICATIONS: HIP FRACTURE TECHNIQUE: 2 views of the femur were acquired. COMPARISON: [facility], CR, XR FEMUR 2VW RT, 03/30/2017, 14:28. FINDINGS: Bones: Improved alignment status post open reduction internal fixation of right intertrochanteric hip fracture. Femoral IM heidy has been placed as well as proximal dynamic hip screw, with hardware in ex pected position. No periprosthetic fractures seen. Soft tissues: No suspicious soft tissue calcifications or masses. IMPRESSION: Improved alignment status post ORIF of right intertrochanteric hip fracture. Dictated by: Kody HOLLIDAY Interpreted: Rolando Radford MD on 04/01/2017 at 16:42 Approved by: Cm Radford M.D. on 04/01/2017 at 17:01
--- NOTE | 2017-04-01 17:06 | PCM.ANEP1 ---
Post Anesthesia PACU Phase 1 Assessment Vital Signs Vital Signs Date Time Temp Pulse Resp B/P Pulse Ox O2 Delivery O2 Flow Rate FiO2 04/01/17 16:55 36.0 118/58 Anesthetic Administered: GA Level of Alertness: Sleepy, easy to arouse LIPSCOMB's with Equal Strength: Yes Pain: No Pain Scale Score: 5 Nausea or Vomiting: No CV Function & Hydration Stable: Yes Airway Device: Oxygen Delivery: Simple Mask Lungs: Clear to Auscultation Dermatome Level: Full Sensation PACU Phase 2 Assessment Complications: No Patient Instructions Provided: N/A Donnell Figueroa MD Apr 01, 2017 17:06
--- NOTE | 2017-04-01 17:37 | DRSVH ---
PROCEDURE: X-RAY RIGHT FEMUR, TWO VIEWS ([id number]) INDICATIONS: POST OP TECHNIQUE: 2 views of the femur were acquired. COMPARISON: [facility], CR, XR FEMUR 2VW RT, 03/30/2017, 14:28. [facility], CR, XR FEMUR 2VW RT, 04/01/2017, 16:04. FINDINGS: Bones: Patient is status post intramedullary nail placement in the right femur. Fracture fragments ar e in anatomic alignment. Soft tissues: Postsurgical changes are noted. IMPRESSION: ORIF of the right intertrochanteric fracture. Dictated by: Gina Bernabe M.D. on 04/01/2017 at 17:34 Approved by: Gina Bernabe M.D. on 04/01/2017 at 17:35
--- NOTE | 2017-04-01 17:39 | DRSVH ---
PROCEDURE: X-RAY PELVIS W/LAT HIP (RT) ([id number]) INDICATIONS: post op TECHNIQUE: AP pelvis and lateral view of the right hip acquired. COMPARISON: [facility], , XR FEMUR 2VW RT, 04/01/2017, 17:12. FINDINGS: Bones: Patient is status post ORIF of a right proximal femur fracture with hardware components and f racture fragments in expected positions. Moderate to severe right hip osteoarthritis is present. Post operative and degenerative changes are present at the left hip. Soft tissues: Overlying postoperative changes are noted. No suspicious soft tissue densities. IMPRESSION: ORIF of the right proximal femur fracture. Dictated by: Gina Bernabe M.D. on 04/01/2017 at 17:36 Approved by: Gina Bernabe M.D. on 04/01/2017 at 17:37
[2017-04-01] MEDS: HYDROcodone-APAP 7.5-325 mg Tablet PO PRN (20:15)
[2017-04-01] MEDS: CeFAZolin Inj 2 GM in IV Premix 1 EACH IV SCH (20:17)
[2017-04-01] MEDS: Sodium Chloride LOK Flush 10 mL Syringe IV SCH (20:21)
--- NOTE | 2017-04-01 22:44 | OP ---
[address] [address] OPERATIVE REPORT PATIENT: LEATHA ANTHONY : 1925 MR#: [id number] ADMIT: 03/30/2017 JOB ID: [id number] DATE OF SURGERY: 04/01/2017 PREOPERATIVE DIAGNOSIS(ES): Comminuted right intertrochanteric femoral fracture. ICD 10 code is 72.141A. POSTOPERATIVE DIAGNOSIS(ES): Comminuted right intertrochanteric femoral fracture. ICD 10 code is 72.141A. PROCEDURE: Open reduction, internal fixation with a long locked Synthes intramedullary nail, CPT code 437604. IMPLANTS UTILIZED: Synthes 380 mm heidy lanced by 12 mm diameter 125 degree angle with a 95 mm compression screw and a 40 mm distal interlocking screw. SURGEON: Ish Lala MD. ASSISTING: Amado Gong PA-C. Amado was an integral portion of the procedure, helping to obtain and maintain reduction and retraction during the procedure. ANESTHESIA: General. ESTIMATED BLOOD LOSS: 200 mL. DRAINS: None. COMPLICATIONS: None. SPONGE AND NEEDLE COUNTS: Correct. SPECIMENS: A small amount of bone specimen sent to Pathology from the [facility]. The patient does have a prior history of bladder and rectal cancer and prior resection. INDICATIONS: This is an 89-year-old male with history of multiple medical issues including the fact he has had mild congestive heart failure in the past with a recent cardiac echo at least shows his cardiac ejection fraction is 50. He has also had prior cancer where he has had resection of the prostate, the bladder and the rectum. He has long-standing colostomy and ureterostomy. PROCEDURE IN DETAIL: The patient was anesthetized on the bed and placed on the fracture table. Both legs were placed in the traction boots. Legs were placed in a scissor technique, lowering the left leg in order to have good visualization for the right hip. X-rays confirmed the hip fracture was reduced on the fracture table. Right hip was prepped and draped in sterile fashion. After appropriate time-out was called, an incision was fashioned just proximal to the greater trochanter. The incision was carried down to the tensor fascia louis to the tip of the greater trochanter. The patient was noted to be somewhat oozy in the subcutaneous and muscular layers. A guide pin was then introduced into the greater trochanter. It needed to be adjusted and once it was adjusted, it was noted to be in good position. Image intensification confirmed good position of the guide pin. The guide pin was over-reamed. The guide pin was removed and a ball-tipped guide was placed down the femoral canal to just proximal to the superior pole of the patella. This was subsequently measured and it was felt that a 380 mm length heidy would be the best fit. The canal was then subsequently reamed up to 13.5 mm. I then placed a 12 mm x 380 mm length, 125 degree angle Synthes trochanteric femoral nail down the femur. Image intensification confirmed good position of the femoral heidy. Attention was next turned to the proximal locking screw. An incision was made over the lateral aspect of the femur, taking it down through the tensor fascia louis to the bone. Then, the alignment jig was placed on the heidy. A guide pin was then introduced in the femoral neck and head and found to be in good position on AP and lateral views. It was measured and the outer cortex was reamed with a larger reamer. The remaining portion over the heidy was reamed with a smaller reamer to 90 mm. A 95 mm compression screw was then placed in the femoral neck and head. X-rays confirmed good position of the screw placement. Please note that the ball-tipped guide was removed prior to placing the compression screw. The heidy was then locked into position and then turned back 180 mm to allow for compression if needed. The alignment jig was removed off the lateral aspect of the femur and the heidy itself, alignment jig was entirely removed from the proximal portion of the heidy. Attention was next turned to the distal interlock screw. Perfect circles were made with image intensification. A small incision was fashioned over the distal aspect of the femur down to the tensor fascia louis and down to the bone. The oblong screw hole was then drilled and filled with a cortical screw through both cortices of the bone and through the heidy. Permanent x-rays were taken with image intensification. Each of the wounds was irrigated with antibiotic solution. The two small incisions distally were closed with some interrupted sutures of 0 and 2-0 Vicryl. Skin reapproximated with karsten. There was some 0.5% plain Marcaine placed in each of the wounds. The right proximal wound was closed with a few interrupted sutures of #1 Vicryl along the tensor fascia louis and the subcutaneous layers were closed with interrupted sutures of 2-0 and 3-0 Vicryl. Skin was reapproximated with karsten. Please note, the patient was also had been given a femoral nerve block preoperatively to help decrease the amount of postoperative pain. Xeroform dry sterile dressings were applied. The patient was carefully taken off the fracture table and placed on his bed. Taken to recovery room in stable condition. Sponge and needle count correct. No complications. I did send a small amount of bone specimen to Pathology from the reaming since he did have prior history of cancer. PLAN: The patient appears to have good fixation with the heidy. I will allow him to be out of bed and begin ambulation and partial weightbearing of about 50% of his body weight with physical therapy starting tomorrow. He will receive some antibiotics for two days rather than just 24 hours since he does have a longstanding colostomy and ureterostomy which might make him a slight higher risk for infection. He will also be placed on Lovenox postoperatively 40 mg subcu daily to decrease risk for DVT T. I would suggest that he stay on the Lovenox for three weeks even after he is discharged from hospital, so a total of three weeks from his surgical date. He will need to be seen in the office in two weeks for staple removal.
[2017-04-02] VITALS (8 sets, daily range): BP systolic 99–131; BP diastolic 44–73; PULSE 78–92; RESP 14–18; O2SAT 82–97
[2017-04-02] MEDS: HYDROcodone-APAP 7.5-325 mg Tablet PO PRN ×3 (04:30→22:07)
[2017-04-02] MEDS: CeFAZolin Inj 2 GM in IV Premix 1 EACH IV SCH ×3 (04:39→17:10)
[2017-04-02 06:32] LABS: BASOPHILS % (AUTO) 0.1 % (0-3); EOSINOPHILS % (AUTO) 0.7 % (0-5); MONOCYTES % (AUTO) 10.5 % (4-12); Mean Corpuscular Hemoglobin 29.3 pg (27.0-35.0); Mean Corpuscular Volume 89.5 fL (81-100); NEUTROPHILS % (AUTO) 82.3 % (40-74); Platelet Count 112 bil/L (150-400)
[2017-04-02] MEDS: Sodium Chloride LOK Flush 10 mL Syringe IV SCH ×2 (08:05→16:30)
[2017-04-02] MEDS: 0.9% Sodium Chloride 1,000 ML IV SCH ×2 (08:06→13:00)
--- NOTE | 2017-04-02 08:06 | PCM.PNORTH ---
Subjective Date of Service: Apr 02, 2017 Visit Information: Reason for Visit Rintertrochanteric Fracture Surgery/Surgery Date orif right femoral fracture 04/01/17 Post-Op Day # 1 Date of Admission: Mar 30, 2017 at 16:16 Hospital Day # Subjective Patient states he is having very little pain. He has no complaints or concerns at this time. Postop General: No Complaints Pain Management: PO Objective Exam Objective Patient sitting up in bed Vital Signs and I/O Vital Sign - Last Date Time Temp Pulse Resp B/P Pulse Ox O2 Delivery O2 Flow Rate FiO2 04/02/17 04:34 37.1 90 18 124/64 Nasal Cannula 2.00 04/02/17 00:07 94 Intake and Output 04/01/17 04/01/17 04/02/17 Cumulative From/Thru 15:00 23:00 07:00 03/30/17 13:41 - 04/02/17 06:10 Intake Total 1075 ml 300 ml 400 ml 3186 ml Output Total 1250 ml 400 ml 3475 ml Balance 1075 ml -950 ml 0 ml -289 ml Intake Oral 0 ml 400 ml 1750 ml IV Total 1075 ml 300 ml 1436 ml Output Urine Total 1050 ml 300 ml 2925 ml Stool Total 100 ml 350 ml Estimated Blood Loss 200 ml 200 ml # Bowel Movements 0 1 Lab & Micro Results Laboratory Tests Test 04/02/17 05:40 White Blood Count 6.7th/mm3 (3.8-10.1) Red Blood Count 3.24mil/mm3 (4.40-5.80) Hemoglobin 9.5g/dL (13.8-17.2) Hematocrit 29.0% (41.0-50.0) Mean Corpuscular Volume 89.5fL (81-100) Mean Corpuscular Hemoglobin 29.3pg (27.0-35.0) Mean Corpuscular Hemoglobin Concent 32.8% (32.0-37.0) Red Cell Distribution Width 14.2% (12.3-15.4) Platelet Count 112bil/L (150-400) Neutrophils (%) (Auto) 82.3% (40-74) Lymphocytes (%) (Auto) 6.3% (14-46) Monocytes (%) (Auto) 10.5% (4-12) Eosinophils (%) (Auto) 0.7% (0-5) Basophils (%) (Auto) 0.1% (0-3) Microbiology 03/30/17 Urine Culture - Preliminary, Resulted Result Diagram: 04/02/17 0540 04/01/17 0525 General Appearance: Alert, Oriented X3, Cooperative, No Acute Distress Extremities: Distal Pulses Palpable, No Compartment Syndrom Noted Postop Sensory Motor: Distal Motor Intact, Movement in Toes, Distal Sensation Intact, NVI Distally SURGICAL WOUND : Wound Location/Description Perioperative dressings c/d/i - however they are starting to peel off at the most proximal end. Will change tomorrow. Assessment & Plan Impression POD#1 right hip long nail Problems: Plan Weightbearin% weightbearing with a walker as an assistive device DVT prophylaxis: Lovenox 40 mg daily, recommended for [address] Lala's op note. Physical therapy for transfers, progressive ambulation, strengthening Wound care: Perioperative dressings will be changed to an island dressing tomorrow Analgesia: Continue oral pain management. Discharge plan: Discharge home vs SNF in 1-2 days. Patient should receive post-operative antibiotics (in this case Ancef) for 48 hours instead of the usual 24 hours due to colostomy and ureterostomy which might make him a slight higher risk for infection. I have placed an order for this today. Follow-up plan: In 2 weeks at [facility] with NILSA for wound check and at [address] Lala with x-rays VTE Prophylaxis: SCDs Resuscitation Status: DNR/DNI:Do Not Resuscitate/Intubate Halima Castañeda PA-C Apr 02, 2017 08:05
[2017-04-02] MEDS ORDERED: CeFAZolin Inj 2 GM in IV Premix 1 EACH IV SCH (08:30)
[2017-04-02] MEDS: cefTRIAXone Inj 1,000 MG in Dextrose 5% Minibag Plus 50 ML IV SCH (10:45)
--- NOTE | 2017-04-02 11:37 | PCM.PNMED ---
Subjective Date of Service Apr 02, 2017 Subjective Patient seen and examined. He feels tired after surgery. Pain is in control. Vitals stable. Exam Vital Signs Vital Sign - Last Date Time Temp Pulse Resp B/P Pulse Ox O2 Delivery O2 Flow Rate FiO2 04/02/17 07:57 37.2 87 14 103/47 95 Room Air 04/02/17 04:34 2.00 Intake and Output 04/01/17 04/01/17 04/02/17 Cumulative From/Thru 15:00 23:00 07:00 03/30/17 13:41 - 04/02/17 06:10 Intake Total 1075 ml 300 ml 400 ml 3186 ml Output Total 1250 ml 400 ml 3475 ml Balance 1075 ml -950 ml 0 ml -289 ml Intake Oral 0 ml 400 ml 1750 ml IV Total 1075 ml 300 ml 1436 ml Output Urine Total 1050 ml 300 ml 2925 ml Stool Total 100 ml 350 ml Estimated Blood Loss 200 ml 200 ml # Bowel Movements 0 1 Exam General/Constitutional: Awake, Alert, No acute distress ENT: Atraumatic, Airway patent, Mucous membranes moist Respiratory / Chest: Atraumatic, Breath sounds NL, Breath sounds = bilat, No respiratory distress Cardiovascular: Heart rate NL, Regular rhythm, Heart sounds NL Abdomen: Atraumatic, Soft, Non-tender. Stomies present, clean, non infectious Upper Extremity / MS: Atraumatic, Inspection NL, Full range of motion Lower Extremity / Pelvis / MS:Right extremity in dressing, no signs of erythema Lab and Diagnostics Result Diagram: 04/02/17 0540 04/01/17 0525 X-Rays, CTs and MRIs XR IMPRESSION: Minimally displaced intertrochanteric fracture of the right femur. CT LE IMPRESSION: Comminuted, intertrochanteric fracture with minimal displacement. Cardiac Echo Impressions Interpretation Summary 1. MIldly dilated left ventricle with mildly increased wall thickness and an estimated EF of 50% 2. Normal right ventricular size and systolic function. 3. Evidence for mild aortic stenosis and mild insufficiency When compared to the previous study, no significant change Assessment & Plan Mr. 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 Lala's op note. Physical therapy for transfers, progressive ambulation, strengthening Wound care: Perioperative dressings will be changed to an island dressing tomorrow Cefazolin X 3 days total - Vit D levels normal > h/o chf - not in acute exacerbation - echo as noted above - CXR noted , self read: no pleural effusions or cephalization observed - EKG noted , no acute changes > CKD, with possible FELICE, resolved - basline Cr likely 1.4-1.6 - will continue to monitor > H/O UTI - no signs and symptoms - moderate bacteria - dc ceftriaxone as patient has been getting cefazolin > HTN - exacerbated by pain - pain control + home meds - hydralazine prn if systolic >180, diastolic> 110 > h/0 squamous cell carcinoma s/p resection of bladder, anus, rectum - stomies present, clear as needed > Depression - continue home meds Inpatient admission, likely will stay > 2 days due to complication of this disease process. VTE Prophylaxis: SCDs VTE Mechanical Devices: Intermittant Pneumatic CD Resuscitation Status: DNR/DNI:Do Not Resuscitate/Intubate Samuel William MD Apr 02, 2017 11:37
--- NOTE | 2017-04-02 16:33 | NUR ---
Social Work- Continued D/C Planning/Multidisciplinary Rounds Data: EMR reviewed. Pt is on day 3 of hospitalization. Pt discussed in multidisciplinary rounds, pt is not medically stable for d/c. Pt is POD 1. Pt will require SNF at discharge, SNF orders acknowledged. NATASHA spoke with pt and daughter Uma ([phone]) at bedside regarding discharge plan and SNF choice. Pt and daughter would like pt to d/c to a SNF in [place] to be close to his children. NATASHA discussed medicare.gov website and nursing facility lists. Pt and daughter looked up facilities in [place] and provided COUNTY DEMONSTRATOR with the following choices (listed in order of preference): 1) [facility] 2) [facility] on 3) [facility] 4) [facility] Due to late hour, referrals will be sent tomorrow morning. NATASHA discussed transportation options with pt and daughter. Options include private transportation provided by pt's children or wheelchair van transportation paid privately. SW informed pt and daughter of cost. Pt and daughter updated and agreeable to plan, unsure which method of transportation they will want at this time. Paperwork in pt's chart, PASRR in folder. SW will continue to follow. Assessment: Pt for whom SNF is medically necessary Plan: Pt likely to d/c to SNF in [place], referrals to be faxed tomorrow morning. Pt and daughter aware of transportation options as facilities do not provide transportation from [facility] to [place]. Paperwork in pt's chart, PASRR in folder. SW will continue to follow. ANURADHA English
--- NOTE | 2017-04-02 20:12 | NUR ---
Confusion Pt. became confused around 1100 this morning. He thought he was at his house, and that it was 1989. He did know that he had broken his hip. It had been several hours since any pain medication administration. Spoke with rn charge and MD about new onset confusion, as well as change in vital signs (Pt now requiring 2L NC. He has also been hypotensive this morning). Monitored pt. closely. Confusion cleared up this afternoon. Pt. is now alert and oriented x3.
[2017-04-03 00:12] VITALS: BP 136/54; PULSE 84; RESP 16; O2SAT 93
[2017-04-03] MEDS: Sodium Chloride LOK Flush 10 mL Syringe IV SCH ×3 (00:30→16:30)
[2017-04-03] MEDS: CeFAZolin Inj 2 GM in IV Premix 1 EACH IV SCH ×2 (00:48→08:37)
[2017-04-03] MEDS: HYDROcodone-APAP 7.5-325 mg Tablet PO PRN ×3 (02:36→20:33)
[2017-04-03 04:26] VITALS: BP 124/55; PULSE 84; RESP 14; O2SAT 93
[2017-04-03 06:38] LABS: BASOPHILS % (AUTO) 0.2 % (0-3); EOSINOPHILS % (AUTO) 2.9 % (0-5); MONOCYTES % (AUTO) 11.6 % (4-12); Mean Corpuscular Volume 89.7 fL (81-100); NEUTROPHILS % (AUTO) 77.1 % (40-74); Platelet Count 122 bil/L (150-400)
[2017-04-03 08:02] VITALS: BP 110/60; PULSE 73; RESP 18; O2SAT 96
[2017-04-03] MEDS: 0.9% Sodium Chloride 1,000 ML IV SCH (08:40)
--- NOTE | 2017-04-03 09:16 | PCM.PNORTH ---
Subjective Date of Service: Apr 03, 2017 Visit Information: Reason for Visit Rintertrochanteric Fracture Surgery/Surgery Date orif right femoral fracture 04/01/17 Post-Op Day # 2 Date of Admission: Mar 30, 2017 at 16:16 Hospital Day # Subjective Patient denies any pain. He states he has not been out of bed yet. Postop General: No Complaints Pain Management: PO Objective Exam Objective Patient is seen lying in bed Vital Signs and I/O Vital Sign - Last Date Time Temp Pulse Resp B/P Pulse Ox O2 Delivery O2 Flow Rate FiO2 04/03/17 08:02 36.5 73 18 110/60 96 Nasal Cannula 2.00 Intake and Output 04/02/17 04/02/17 04/03/17 Cumulative From/Thru 15:00 23:00 07:00 03/30/17 13:41 - 04/03/17 06:24 Intake Total 982 ml 1453 ml 867 ml 6488 ml Output Total 250 ml 450 ml 4175 ml Balance 982 ml 1203 ml 417 ml 2313 ml Intake Oral 890 ml 200 ml 2840 ml IV Total 982 ml 563 ml 667 ml 3648 ml Output Urine Total 250 ml 450 ml 3625 ml Stool Total 350 ml Estimated Blood Loss 200 ml # Bowel Movements 0 1 Lab & Micro Results Laboratory Tests Test 04/03/17 06:02 White Blood Count 5.5th/mm3 (3.8-10.1) Red Blood Count 2.72mil/mm3 (4.40-5.80) Hemoglobin 7.9g/dL (13.8-17.2) Hematocrit 24.4% (41.0-50.0) Mean Corpuscular Volume 89.7fL (81-100) Mean Corpuscular Hemoglobin 29.0pg (27.0-35.0) Mean Corpuscular Hemoglobin Concent 32.4% (32.0-37.0) Red Cell Distribution Width 14.1% (12.3-15.4) Platelet Count 122bil/L (150-400) Neutrophils (%) (Auto) 77.1% (40-74) Lymphocytes (%) (Auto) 7.8% (14-46) Monocytes (%) (Auto) 11.6% (4-12) Eosinophils (%) (Auto) 2.9% (0-5) Basophils (%) (Auto) 0.2% (0-3) Microbiology 03/30/17 Urine Culture - Final, Complete Klebsiella Pneumoniae Pseudomonas Aeruginosa Mixed Urogenital Leela Result Diagram: 04/03/17 0602 04/01/17 0525 General Appearance: Alert, Oriented X3, Cooperative, No Acute Distress Extremities: Distal Pulses Palpable, No Compartment Syndrom Noted, Thigh & Calf Soft/Nontender Postop Sensory Motor: Distal Motor Intact, Distal Sensation Intact, NVI Distally SURGICAL WOUND : Wound Location/Description Right lower extremity: Surgical dressing is removed. There is no erythema present. There is minimal serous drainage from the proximal wound, as expected. Holiday are intact. The surgical wounds are cleansed with hydrogen peroxide. Island dressings were placed over the 2 proximal wounds and a 2 x 2 gauze with Tegaderm was placed over the distal wound at the knee. Activity: Activity per PT Catheters: None Assessment & Plan Impression POD #2 status post right hip IM nailing Problems: Plan Weightbearin% weightbearing with a walker as an assistive device DVT prophylaxis: Lovenox 40 mg daily, recommended for [address] Lala's op note. Physical therapy for transfers, progressive ambulation, strengthening Wound care: dressing changed today by NILSA to Island dressings Analgesia: Continue oral pain management. Discharge plan: Discharge home vs. when medically stable. Patient should receive post-operative antibiotics (in this case Ancef) for 48 hours post op. Follow-up plan: In [address] [facility] with NILSA for wound check and at [address] Lala with x-rays Pain Management: [place] 7.5 mg VTE Prophylaxis: Sub-Q Enoxaparin, SCDs Resuscitation Status: DNR/DNI:Do Not Resuscitate/Intubate Mariel Gallardo PA-C Apr 03, 2017 09:15
[2017-04-03 11:02] VITALS: PULSE 75
[2017-04-03 12:46] VITALS: BP 113/50; PULSE 69; RESP 20; O2SAT 96
--- NOTE | 2017-04-03 13:22 | NUR ---
Tele Per athletic monitor pt had 10s run SVT in the 140s. Pt currently sinus 64. notified.
--- NOTE | 2017-04-03 15:41 | NUR ---
INTERMEDIATE TRANSFER : Scheduled BLS transport for [id number] via [facility], PCS form completed Updated SHEETMETAL TRADES WORKER Addendum: 04/03/17 at 1547 by YOLA MANN CM Note on wrong patient
--- NOTE | 2017-04-03 15:47 | NUR ---
CUSTODIAL TRANSFER : Faxed referral to [facility] [phone], this is the only facility which called back with fax number. Updated ENTERPRISE INTEGRATION DEVELOPER
--- NOTE | 2017-04-03 16:13 | NUR ---
Social Work- Update Requested pt and daughter review SNF list provided to find facilities closer to hospital as [place] SNFs are not communicating. Daughter and pt agreeable to back up plan. SNF CHOICE LIST PROVIDED again. ANURADHA English
--- NOTE | 2017-04-03 17:02 | PCM.PNMED ---
Subjective Date of Service Apr 03, 2017 Subjective Patient is in bed, complaining of mild right hip pain. Exam Vital Signs Vital Sign - Last Date Time Temp Pulse Resp B/P Pulse Ox O2 Delivery O2 Flow Rate FiO2 04/03/17 12:46 36.8 69 20 113/50 96 Nasal Cannula 2.00 Intake and Output 04/02/17 04/02/17 04/03/17 Cumulative From/Thru 15:00 23:00 07:00 03/30/17 13:41 - 04/03/17 06:24 Intake Total 982 ml 1453 ml 867 ml 6488 ml Output Total 250 ml 450 ml 4175 ml Balance 982 ml 1203 ml 417 ml 2313 ml Intake Oral 890 ml 200 ml 2840 ml IV Total 982 ml 563 ml 667 ml 3648 ml Output Urine Total 250 ml 450 ml 3625 ml Stool Total 350 ml Estimated Blood Loss 200 ml # Bowel Movements 0 1 Exam PHYSICAL EXAM: GENERAL: Alert, not in distress, cooperative HEAD: atraumatic, normocephalic, no bruises. EYES: CYDNEY, EOMI, anicteric, able to fully open and close eyelids SKIN: Skin color normal, turgor normal. No visible rashes or lesions. EAR, NOSE, MOUTH, THROAT: Lips, oral mucosa, tongue gums, oropharynx are moist , pink, no lesions. NECK: supple ROM normal. RESPIRATORY: Lungs clear to auscultation. Good diaphragmatic excursion.. CARDIAC: normal S1 and S2; no rubs, murmurs, or gallops; regular rate and rhythm ABDOMEN: Abdomen soft, non-tender. BS normal. No masses or organomegaly. MUSCULOSKELETAL: ROM decreased in the broken hip, muscles are not tender EXTREMITIES: no pitting edema in LE,. NEURO: Alert, oriented X 3, Sensation grossly intact., Cranial nerves II-XII intact, Grossly normal motor function. PULSES: 2+ radial, 2+ carotid REVIEW OF SYSTEMS: GENERAL: no malaise, no fevers., SEE HPI HEENT: Negative for frequent or significant headaches All other reviewed and negative other than HPI. IVs and Medications Medications Reviewed: Medications were reviewed in detail Lab and Diagnostics Result Diagram: 04/03/17 0602 04/01/17 0525 X-Rays, CTs and MRIs XR IMPRESSION: Minimally displaced intertrochanteric fracture of the right femur. CT LE IMPRESSION: Comminuted, intertrochanteric fracture with minimal displacement. Cardiac Echo Impressions Interpretation Summary 1. MIldly dilated left ventricle with mildly increased wall thickness and an estimated EF of 50% 2. Normal right ventricular size and systolic function. 3. Evidence for mild aortic stenosis and mild insufficiency When compared to the previous study, no significant change Assessment & Plan Mr. 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 Lala's op note. Physical therapy for transfers, progressive ambulation, strengthening Wound care: Perioperative dressings will be changed to an island dressing tomorrow Cefazolin X 3 days total - Vit D levels normal Chronic diastolic CHF - stable - echo as noted above - CXR - no pleural effusions or cephalization observed - EKG - no acute changes Plan - c/w current meds CKD stage 3 - basline Cr likely 1.4-1.6 - will continue to monitor Hx of UTI - no signs and symptoms - moderate bacteria - dc ceftriaxone as patient has been getting cefazolin HTN - stable - exacerbated by pain - pain control + home meds - hydralazine prn Hx of squamous cell carcinoma s/p resection of bladder, anus, rectum - stable Depression - stable - continue home meds Disposition: discharge in 1-2 days after patient improves. Labs, radiology tests, ECG reviewed. Plan of care, medication side effects, home medication, diagnostic procedures and available alternatives were discussed and reviewed with patient. All questions answered. Patientverbalized understanding, approved and agreed to plan of care. VTE Prophylaxis: Sub-Q Enoxaparin, SCDs VTE Mechanical Devices: Intermittant Pneumatic CD Resuscitation Status: DNR/DNI:Do Not Resuscitate/Intubate Dewey Garcia MD Apr 03, 2017 17:02
[2017-04-03 17:26] LABS: Mean Corpuscular Hemoglobin 28.8 pg (27.0-35.0); Mean Corpuscular Volume 89.8 fL (81-100)
[2017-04-03 19:37] VITALS: BP 135/67; PULSE 79; RESP 18
[2017-04-04] VITALS (11 sets, daily range): BP systolic 126–166; BP diastolic 52–71; PULSE 73–82; RESP 16–18; O2SAT 91–94
[2017-04-04] MEDS: Sodium Chloride LOK Flush 10 mL Syringe IV SCH ×3 (00:23→14:53)
--- NOTE | 2017-04-04 04:27 | NUR ---
Sleep Pt is napping throughout the shift. He is assisted with urostomy emptying and declines colostomy assistance at start of shift. PRN for pain before HS, patient states no other need for pain medication. Per tele SR. No SOB or chest pain. NS infusing at 40 ml/h. Care continues
[2017-04-04] MEDS: HYDROcodone-APAP 7.5-325 mg Tablet PO PRN ×2 (05:37→21:13)
[2017-04-04 08:16] LABS: Mean Corpuscular Hemoglobin 28.7 pg (27.0-35.0); Mean Corpuscular Volume 89.9 fL (81-100)
--- NOTE | 2017-04-04 08:34 | NUR ---
CUSTODIAL TRANSFER FOLLOW UP: Faxed referral to [facility] in [place] [phone] Addendum: 04/04/17 at 1229 by YOLA MANN CM Faxed referral to [facility] in [place] per TELECOMMUNICATIONS FIELD TECHNICIAN. Patient likely ready tomorrow
--- NOTE | 2017-04-04 09:01 | PCM.PNORTH ---
Subjective Date of Service: Apr 04, 2017 Visit Information: Reason for Visit Rintertrochanteric Fracture Surgery/Surgery Date orif right femoral fracture 04/01/17 Post-Op Day # 3 Date of Admission: Mar 30, 2017 at 16:16 Hospital Day # Subjective The patient stated at bedside yesterday but has some dizziness and has not yet ambulated with therapy. He understands that he will need to go to rehabilitation following the hospital stay. Postop General: No Complaints Pain Management: PO Objective Exam Objective Patient is seen sitting up in bed Vital Signs and I/O Vital Sign - Last Date Time Temp Pulse Resp B/P Pulse Ox O2 Delivery O2 Flow Rate FiO2 04/04/17 05:25 36.9 75 16 154/64 91 Room Air 04/03/17 12:46 2.00 Intake and Output 04/03/17 04/03/17 04/04/17 Cumulative From/Thru 15:00 23:00 07:00 03/30/17 13:41 - 04/04/17 06:58 Intake Total 1472 ml 739 ml 8699 ml Output Total 425 ml 550 ml 5150 ml Balance 1047 ml 189 ml 3549 ml Intake Oral 960 ml 300 ml 4100 ml IV Total 512 ml 439 ml 4599 ml Output Urine Total 425 ml 550 ml 4600 ml Stool Total 0 ml 350 ml Estimated Blood Loss 200 ml # Bowel Movements 1 2 Lab & Micro Results Laboratory Tests Test 04/03/17 17:12 04/04/17 08:00 White Blood Count 5.5th/mm3 (3.8-10.1) 4.6th/mm3 (3.8-10.1) Red Blood Count 2.64mil/mm3 (4.40-5.80) 2.47mil/mm3 (4.40-5.80) Hemoglobin 7.6g/dL (13.8-17.2) 7.1g/dL (13.8-17.2) Hematocrit 23.7% (41.0-50.0) 22.2% (41.0-50.0) Mean Corpuscular Volume 89.8fL (81-100) 89.9fL (81-100) Mean Corpuscular Hemoglobin 28.8pg (27.0-35.0) 28.7pg (27.0-35.0) Mean Corpuscular Hemoglobin Concent 32.1% (32.0-37.0) 32.0% (32.0-37.0) Red Cell Distribution Width 14.1% (12.3-15.4) 14.3% (12.3-15.4) Platelet Count 130bil/L (150-400) 136bil/L (150-400) Microbiology 03/30/17 Urine Culture - Final, Complete Klebsiella Pneumoniae Pseudomonas Aeruginosa Mixed Urogenital Leela Result Diagram: 04/04/17 0800 04/01/17 0525 General Appearance: Alert, Oriented X3, Cooperative, No Acute Distress Extremities: Distal Pulses Palpable, No Compartment Syndrom Noted, Thigh & Calf Soft/Nontender Postop Sensory Motor: Distal Motor Intact, Distal Sensation Intact, NVI Distally SURGICAL WOUND : Wound Location/Description Right hip dressings: The most proximal dressing has moderate serous drainage present. The remaining 2 dressings are clean, dry and intact. There is no erythema or signs of infection. Activity: Activity per PT Catheters: None Assessment & Plan Impression POD #3 status post right hip IM nail Problems: Plan Weightbearin% weightbearing with a walker as an assistive device DVT prophylaxis: Lovenox 40 mg daily, recommended for [address] Lala's op note. Physical therapy for transfers, progressive ambulation, strengthening Wound care: Nursing please change dressings today with 4 x 4 gauze and Island dressing at the most proximal wound, Island dressing at the middle wound, and 2 x 2 gauze and Tegaderm at the distal wound After discharge please change dressing every 2 days or sooner if dressing is saturated. Keep wounds clean and dry for 2 weeks. Cover with plastic to shower. Analgesia: Continue oral pain management. Discharge plan: Discharge to SNF due to poor progress with PT. Patient will need PT, OT and assisted at SNF. Patient will be discharged when medically stable. Orthopedics will sign off at this time. Please call us if any right hip or wound issues. Follow-up plan: In 2 weeks at [facility] with NILSA for wound check and at [address] Lala with x-rays Pain Management: [place] 7.5 mg VTE Prophylaxis: Sub-Q Enoxaparin, SCDs Resuscitation Status: DNR/DNI:Do Not Resuscitate/Intubate Mariel Gallardo PA-C Apr 04, 2017 09:01
--- NOTE | 2017-04-04 09:06 | NUR ---
Social Work- Update Placed call to pt's daughter this AM regarding back up choices for local SNF if [facility] don't workout. Teresa Lopez MSW
--- NOTE | 2017-04-04 12:23 | PCM.PNMED ---
Subjective Date of Service Apr 04, 2017 Subjective Patient is in bed, complaining of generalized weakness. The hemoglobin has been decreasing and today is 7.1. Patient is on DVT prophylaxis with Lovenox. I expect his hemoglobin might decrease even more. Patient will be transfused with 1 unit of RBC. I discussed risks and benefits of blood product transfusion with the patient; risks include severe allergic reactions, lung damage, hepatitis B, C, HIV. She consented to blood product transfusion.. Exam Vital Signs Vital Sign - Last Date Time Temp Pulse Resp B/P Pulse Ox O2 Delivery O2 Flow Rate FiO2 04/04/17 09:27 145/52 04/04/17 09:23 36.9 82 16 91 04/04/17 05:25 Room Air 04/03/17 12:46 2.00 Intake and Output 04/03/17 04/03/17 04/04/17 Cumulative From/Thru 15:00 23:00 07:00 03/30/17 13:41 - 04/04/17 06:58 Intake Total 1472 ml 739 ml 8699 ml Output Total 425 ml 550 ml 5150 ml Balance 1047 ml 189 ml 3549 ml Intake Oral 960 ml 300 ml 4100 ml IV Total 512 ml 439 ml 4599 ml Output Urine Total 425 ml 550 ml 4600 ml Stool Total 0 ml 350 ml Estimated Blood Loss 200 ml # Bowel Movements 1 2 Exam GENERAL: Alert, not in distress HEAD: atraumatic, normocephalic, no bruises. EYES: EOMI, anicteric, able to fully open and close eyelids SKIN: Skin color normal, turgor normal. No visible rashes or lesions. EAR, NOSE, MOUTH, THROAT: Lips, oral mucosa, tongue are moist, pink NECK: supple ROM normal. RESPIRATORY: Lungs clear to auscultation. Good diaphragmatic excursion. CARDIAC: normal S1 and S2; no rubs, or gallops; regular rhythm ABDOMEN: Abdomen soft, non-tender. BS normal. No masses or organomegaly. MUSCULOSKELETAL: ROM full, muscles are not tender EXTREMITIES: no pitting edema in LE, no new deformities or skin discoloration. NEURO: Alert, oriented X 3, Cranial nerves II-XII intact, Grossly normal motor function. PULSES: 2+ radial, 2+ carotid REVIEW OF SYSTEMS: GENERAL: + malaise, no fevers., SEE HPI HEENT: Negative for frequent or significant headaches, All other reviewed and negative other than HPI. Lab and Diagnostics Result Diagram: 04/04/17 0800 04/01/17 0525 X-Rays, CTs and MRIs XR IMPRESSION: Minimally displaced intertrochanteric fracture of the right femur. CT LE IMPRESSION: Comminuted, intertrochanteric fracture with minimal displacement. Cardiac Echo Impressions Interpretation Summary 1. MIldly dilated left ventricle with mildly increased wall thickness and an estimated EF of 50% 2. Normal right ventricular size and systolic function. 3. Evidence for mild aortic stenosis and mild insufficiency When compared to the previous study, no significant change Assessment & Plan Mr. 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 Lala's op note. Physical therapy for transfers, progressive ambulation, strengthening Wound care: Perioperative dressings will be changed to an island dressing tomorrow Cefazolin X 3 days total - Vit D levels normal Chronic diastolic CHF - stable - echo as noted above - CXR - no pleural effusions or cephalization observed - EKG - no acute changes Plan - c/w current meds CKD stage 3 - basline Cr likely 1.4-1.6 - will continue to monitor UTI - stable - patient received 4 days of antibiotics - c/w Augmentin PO for 3 more days. HTN - stable - exacerbated by pain - pain control + home meds - hydralazine prn Hx of squamous cell carcinoma s/p resection of bladder, anus, rectum - stable Depression - stable - continue home meds Disposition: discharge in 1-2 days after patient improves. Labs, radiology tests, ECG reviewed. Plan of care, diagnostic procedures and available alternatives were discussed and reviewed with patient. All questions answered. Patientverbalized understanding, approved and agreed to plan of care. VTE Prophylaxis: Sub-Q Enoxaparin, SCDs VTE Mechanical Devices: Intermittant Pneumatic CD Resuscitation Status: DNR/DNI:Do Not Resuscitate/Intubate Dewey Garcia MD Apr 04, 2017 12:23 Dewey Garcia MD Apr 04, 2017 12:23
--- NOTE | 2017-04-04 14:37 | NUR ---
Social Work- Continued D/C Planning/Multidisciplinary Rounds Data: EMR reviewed. Pt is on day 5 of hospitalization. Pt discussed in multidisciplinary rounds, pt is not medically stable for discharge. Hemoglobin needs to be stable. T/C from Uma, pt's daughter, regarding local SNF choices. Uma prefers [place] facilities but would want local referrals to be made in [place]. 1) [facility] and 2) [facility]. CABINET FINISHER made referrals to appropriate facilities and has been following. No accepting facilities at this time. Uma and pt updated and agreeable to plan. Paperwork in chart. PASRR complete and in folder to be faxed. SW will continue to follow. Assessment: Pt for whom SNF is medically necessary Plan: Referrals made to [facility] and [place] facilities. Awaiting accepting facility. Paperwork in chart. PASRR complete and in folder to be faxed. SW will continue to follow. ANURADHA English
--- NOTE | 2017-04-04 14:56 | NUR ---
ASSISTED TRANSFER FOLLOW UP: Received call from [facility] and they no longer have SNF Called and left message at [facility] following up on referral from yesterday. Called and left message for [facility] admissions Suzette let her know I am following up on referral sent earlier today. Spoke with Aranza at [facility] would like to take patient and she is going to have Megan do a bedside assessment in the morning. Updated NUTRITIONIST
[2017-04-04] MEDS: 0.9% Sodium Chloride 250 ML IV SCH (16:01)
--- NOTE | 2017-04-04 16:49 | NUR ---
Social Work- Readiness for Discharge/Multidisciplinary Rounds Data: Spoke with pt and daughter Uma to update her regarding SNF. [facility] facilities have not responded to referral. Discussed other options, pt and daughter requested [facility] in [place], [place]. HEALTHCARE MANAGEMENT made referral today. Discussed other options. 1) choose a facility in [facility] to facilitate discharge 2) await response from the other SNFs and potentially delay discharge, receive HIN. Pt is adamant that he does not want to go to [facility] especially and has not agreed to any other [facility] SNF. Pt states that cost is not a concern for him and that he wants to go to a facility closer to his family. Pt is agreeable to waiting for responses from other SNFs. Received call from [facility] regarding bedside assessment. Megan Morgan [phone] is going to assess pt at bedside tomorrow morning between 9:30 and 10 am. Pt updated and agreeable. [facility] has also formally accepted to pt. Uma and pt updated at bedside. Paperwork in chart. PASRR complete and in folder to be faxed. SW will continue to follow. Assessment: Pt for whom SNF is medically necessary Plan: [facility] has accepted the pt and will complete a bedside assessment tomorrow morning. Paperwork in chart. PASRR complete and in folder to be faxed. SW will continue to follow. ANURADHA English
--- NOTE | 2017-04-04 17:18 | PATH ---
SURGICAL PATHOLOGY Attending Physician:Kary Martinez CASE STATUS: Signed Out PATIENT NAME: LEATHA ANTHONY PID: [id number] : 1925 DATE COLLECTED:04/01/2017 00:00 SPECIMEN: Bone, Fragments (other than pathologic fracture) CLINICAL HISTORY: RIGHT INTERTROCHANTERIC FEMORAL FRACTURE, PMH - SQUAMOUS CELL CARCINOMA, BLADDER WITH RESECTION, PROSTATE, BLADDER, RECTUM ANUS 1). BONE FROM RIGHT FEMUR FINAL DIAGNOSIS: 1.BONE FROM RIGHT FEMUR, BIOPSY: - FRAGMENTS OF BONE WITH REACTIVE CHANGES AND MARROW ELEMENTS. - FRAGMENTS OF FIBROCARTILAGE WITH DEGENERATIVE CHANGES. - SCATTERED FRAGMENTS OF SKELETAL MUSCLE AND NERVES. - NO EVIDENCE OF MALIGNANCY. - ADDITIONAL DEEPER LEVELS EXAMINED. Comment: As part of routine quality engineering manager the case was also reviewed by Dr. Griffiths who agrees with the above dignosis. ICD10 S72.009 GROSS DESCRIPTION: Received in formalin labeled with the patient' s name, designated "bone from right femur", is a 3.0 x 2.5 x 0.3 cm aggregate of [place] to dark brown, softened, trabecular bone with focal dark red hemorrhagic areas, which is entirely submitted in cassette 1A following decalcification. ([id number]) MICRO DESCRIPTION: See diagnosis. ICD-9 CODES: CPT CODES: 1: 78029 Electronically Signed Out Gurvinder Gallegos MD [facility] [address], [place] [address] Technical component performed at [facility], [address], [place], [address]
[2017-04-05] MEDS: Sodium Chloride LOK Flush 10 mL Syringe IV SCH ×2 (00:48→08:41)
--- NOTE | 2017-04-05 03:32 | NUR ---
NOC PT A/O x3. CMS intact to RLE. Strong DF and PF noted with weak DP palpated. PT completed blood transfusion at [facility] and tolerated without incident. Calls for assist with colostomy and urostomy. Parlin given once for pain with good relief. ICe applied to R hip and thigh as it was quite swollen when assessed. RLE elevated on pillow. PT declined to ambulate this shift. Tele in SR in 70's.
--- NOTE | 2017-04-05 04:43 | NUR ---
Assumed Care Assumed care of patient @ [id number]. Currently resting with eyes closed. FELDT score= 0.
[2017-04-05 05:30] VITALS: BP 165/71; PULSE 72; RESP 18; O2SAT 93
[2017-04-05 05:57] VITALS: PULSE 66
[2017-04-05] MEDS: HYDROcodone-APAP 7.5-325 mg Tablet PO PRN ×2 (06:10→10:00)
[2017-04-05 08:00] VITALS: PULSE 61
[2017-04-05 08:37] VITALS: BP 165/61; PULSE 71; RESP 18; O2SAT 94
[2017-04-05 09:01] LABS: Mean Corpuscular Hemoglobin 28.7 pg (27.0-35.0); Mean Corpuscular Volume 89.3 fL (81-100)
--- NOTE | 2017-04-05 11:13 | PCM.DIMED ---
Discharge Instructions Date of Service Apr 05, 2017 Dates of Hospitalization Mar 30, 2017 at 16:16 Discharge Diagnosis Discharge Diagnosis Right hip fracture, status post open reduction and internal fixation. 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 Depression Diet Discharge Diet: Heart Healthy Activity Discharge Activity: Other (physical therapy, occupational therapy) Call your provider Call your provider for: Fever or Chills, Shortness of breath, Bleeding, Chest pain, Vomitting, Excessive diarrhea, Weakness (unilateral) Patient Instructions Patient Instructions Patient is being discharged to a long-term facility to continue physical and occupational therapy. Follow-up with PCP in: 1 week Dewey Garcia MD Apr 05, 2017 11:13
[2017-04-05] MEDS ORDERED: CARV6.252 PO (11:23)
[2017-04-05] MEDS ORDERED: Hydrocodone/Acetaminophen PO ×2 (11:23→11:25)
[2017-04-05] MEDS ORDERED: ENOX40DI8 SUBQ (11:23)
[2017-04-05] MEDS ORDERED: CIPR-232 PO (11:23)
--- NOTE | 2017-04-05 11:32 | NUR ---
Social Work: Readiness for Discharge/Multidisciplinary Rounds D: EMR reviewed. Pt is on dya 6 of hospitalization. Pt discussed in multidisciplinary rounds and is medically stable for discharge to a SNF via wheelchair van or POV today. T/C from [facility] at [facility] stating they are willing to accept pt if [facility] coordinates transport. [facility] does not provide transport. T/C from pt's daughter Junior requesting that pt go to [facility] - instead of [facility]. SW explained that pt has been accepted at [facility] and if [facility] doesn't accept pt prior to the end of the day, pt will need to transfer to [facility]. NATASHA explained that the hospital can't keep pt when pt is medically stable for discharge to SNF and a SNF is willing to accept pt. Junior agreeable. NATASHA confirmed with Junior that SW will work to see if [facility] can take pt today and work to advocate for pt's choice. Junior agreeable. T/C to Suzette at [facility] regarding referral. Suzette stated she will review clinicals and get back to within the hour. Suzette confirmed that [facility] doesn't provide transportation. NATASHA acknowledged. SW will await T/C from Suzette and update erika and Junior regarding SNF discharge plan. A: Pt for whom a SNF is medically necessary. P: Pt to transport to SNF today via private pay wheelchair van or POV. SW awaiting T/C from [facility] to determine if they will accept pt. NATASHA will continue to follow. RN updated. ANURADHA Quarles
[2017-04-05] MEDS: 0.9% Sodium Chloride 250 ML IV SCH (12:10)
--- NOTE | 2017-04-05 12:55 | NUR ---
Social Work: Discharge D: EMR reviewed. Pt is on day 6 of hospitalization. Pt discussed in multidisciplinary rounds and is medically stable for discharge to SNF today via wheelchair van. T/C from Suzette at [facility] confirming they will accept pt today but confirmed they don't provide transportation. T/C to pt's daughter Junior confirming pt has been accepted to [facility]. NATASHA confirmed that pt will need to pay privately for transportation and payment is generally required upfront. Junior agreeable to pay privately and agreed to give phone number to [employer] transport to provide payment. T/C to Vivian at [employer] transport who confirmed she can transport pt between 1530 and 1545 from [facility] to [place] in [place] for $122. NATASHA confirmed Vivian can take payment over the phone and provided Vivian with pt's daughters phone number [phone]. T/C to [facility] at [facility] confirming pt has chosen different facility. A: Pt for whom a SNF is medically necessary. P: Pt to transport to [facility] via [employer] private-pay between 1530 and 1545 today. NATASHA confirmed Vivian from [employer] can take payment over the phone and provided Vivian with pt's daughters phone number [phone]. NATASHA updated RN/UA/Pt on transport time and discharge plan. All agreeable. NATASHA updated Suzette at [facility] of pt's transport time. Suzette agreeable. No other needs identified at this time. ANURADHA Quarles Addendum: 04/05/17 at 1441 by JOCELINE COLLIER Discharge ppw, rx, and PASRR faxed to [facility] ([phone]). Transfer packet complete and left at RN station, UA/RN updated on transfer time. ANURADHA Quarles
[2017-04-05] MEDS ORDERED: CITA20TA11 PO (14:09)
--- NOTE | 2017-04-05 14:28 | PCM.DC.MED ---
Discharge Summary Date of Service Apr 05, 2017 Dates of Hospitalization Date of Hospital Admission Mar 30, 2017 at 16:16 Date of Discharge: Apr 05, 2017 Providers: Admitting Physician: Samuel William MD Primary Care Physician: Edwige Stern MD Attending Physician: Dewey Garcia MD Diagnosis at Time of Discharge Diagnosis at Time of Discharge Right hip fracture, status post open reduction and internal fixation. 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 Depression Procedures XRay, CTs & MRIs XR IMPRESSION: Minimally displaced intertrochanteric fracture of the right femur. CT LE IMPRESSION: Comminuted, intertrochanteric fracture with minimal displacement. Cardiac Echo Impression Interpretation Summary 1. MIldly dilated left ventricle with mildly increased wall thickness and an estimated EF of 50% 2. Normal right ventricular size and systolic function. 3. Evidence for mild aortic stenosis and mild insufficiency When compared to the previous study, no significant change Brief History Mr. 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 Patient developed this pain after he tripped and fell. XR in ER revealed right intratrochantric fracture. He denied any syncope, chest pain or shortness of breath. Hospital Course While in the hospital patient underwent open reduction internal fixation by orthopedic surgery. Physical therapy and occupational therapy were consulted and advised the patient should be discharged to retirement facility to continue his rehabilitation. After that surgery patient's hemoglobin decreased to 7.1. He was weak. Patient was diagnosed with symptomatic acute blood loss anemia. He was transfused with 1 unit of RBC. Patient was also diagnosed with UTI. He was treated with IV antibiotics which later were switched to oral ciprofloxacin. Orthopedic surgery team advised DVT prophylaxis with Lovenox for 3 weeks, weightbearing 50% with a walker, continue with physical therapy. Physical exam: sandra was seen and examined on the day of discharge. After patient improved he was discharged to SNF with recommendation to follow up with his PCP, oncologist, orthopedic surgeon for further management of his medical problems. Patient Condition @ Discharge: good Discharge Disposition: [facility] facility Discharge activity - physical therapy and occupational therapy Discharge Diet: regular diet, heart healthy, low fat, low salt, high fiber Information Provided to Patient: information about discharge medications Discharge Medications: I discussed with patient medication dosage, usage, goals of therapy, side effects, alternatives. During discharge patient was allert, oriented, able to make own informed decisions. We discussed possible severe side effects, adverse reactions, benefits, risks, alternatives of current and newly prescribed medications and diagnostic procedures. Patient verbalized understanding and agreed to current plan of care and discharge. TIME SPENT IN DISCHARGE ACTIVITY: Face to face activity greater then 30 minutes spent in discharge activity. 1. Discussed with patient re: discharge plan of care/treatment, and follow up care/services. 2. Patient agreed with discharge plan and further plan of care, all questions were answered/addressed, no further questions at the time of discharge. Exam Vital Signs (Last) Date Time Temp Pulse Resp B/P Pulse Ox O2 Delivery O2 Flow Rate FiO2 04/05/17 08:37 36.9 71 18 165/61 94 Room Air 04/03/17 12:46 2.00 Test 03/30/17 16:30 03/30/17 18:15 03/31/17 05:42 04/01/17 05:25 Magnesium Level 2.1mg/dL (1.6-2.6) Total Bilirubin 0.4mg/dL (0.0-1.2) Aspartate Amino Transf (AST/SGOT) 20U/L (0-50) Alanine Aminotransferase (ALT/SGPT) 13U/L (0-44) Alkaline Phosphatase 91U/L (25-160) Total Protein 7.4g/dL (6.4-8.4) Albumin 3.9g/dL (3.4-5.0) Urine Color Yellow (YELLOW) Urine Appearance Hazy (CLEAR,HAZY) Urine pH 7.0 (5.0-8.0) Urine Specific [place] 1.015 (1.003-1.035) Urine Protein Negativemg/dL (NEG,TRACE) Urine Glucose (UA) Negativemg/dL (NEGATIVE) Urine Ketones Negativemg/dL (NEGATIVE) Urine Occult Blood Negative (NEGATIVE) Urine Nitrite Negative (NEGATIVE) Urine Bilirubin Negative (NEGATIVE) Urine Urobilinogen Normalmg/dL (NORMAL) Urine Leukocyte Esterase Negative (NEGATIVE) Urine RBC 0-2/hpf (0-2) Urine WBC 0-5/hpf (0-5) Urine Epithelial Cells None/hpf (NONE-MOD) Urine Crystals Amorphous urates (NONE Urine Bacteria Moderate/hpf (NONE-FEW) Urine Hyaline Casts None/lpf (NONE) Urine Granular Casts None seen (NONE SEEN) Urine Waxy Casts None seen (NONE SEEN) Urine Red Blood Cell Casts None seen (NONE SEEN) Urine White Blood Cell Casts None seen (NONE SEEN) Urine Mucus None seen (None Seen) Urine Trichomonas None seen (NONE SEEN) Urine Yeast None (NONE SEEN) Urinalysis Comment None Urine Culture Reflexed Indicated Prothrombin Time 10.8sec (8.1-12.5) Prothromb Time International Ratio 1.01ratio Activated Partial Thromboplast Time 28.9sec (22.8-33.0) Vitamin D 25-Hydroxy 41.8ng/mL (30.0-100.0) Sodium Level 141mEq/L (134-144) Potassium Level 4.1mEq/L (3.5-5.2) Chloride Level 105mEq/L (97-108) Carbon Dioxide Level 24mmol/L (18-29) Blood Urea Nitrogen 33mg/dL (8-27) Creatinine 1.53mg/dL (0.76-1.27) Estimat Glomerular Filtration Rate 46mL/min (>59) Glucose Level 111mg/dL (60-99) Calcium Level 8.5mg/dL (8.5-10.1) Test 04/03/17 06:02 04/04/17 10:28 04/05/17 08:45 Neutrophils (%) (Auto) 77.1% (40-74) Lymphocytes (%) (Auto) 7.8% (14-46) Monocytes (%) (Auto) 11.6% (4-12) Eosinophils (%) (Auto) 2.9% (0-5) Basophils (%) (Auto) 0.2% (0-3) Hold Purple Top Tube Received (Received) White Blood Count 5.4th/mm3 (3.8-10.1) Red Blood Count 3.07mil/mm3 (4.40-5.80) Hemoglobin 8.8g/dL (13.8-17.2) Hematocrit 27.4% (41.0-50.0) Mean Corpuscular Volume 89.3fL (81-100) Mean Corpuscular Hemoglobin 28.7pg (27.0-35.0) Mean Corpuscular Hemoglobin Concent 32.1% (32.0-37.0) Red Cell Distribution Width 13.9% (12.3-15.4) Platelet Count 191bil/L (150-400) Discharge Medications Discharge Medications Aspirin (Aspirin) 81 Mg Tablet 81 MG PO DAILY (Reported) Carvedilol (Carvedilol) 6.25 Mg Tablet 9.375 MG PO BID Prescribed by: NUNU HENRY MD Ciprofloxacin (Cipro) 250 Mg Tablet 250 MG PO BID@ Prescribed by: NUNU HENRY MD Citalopram (Citalopram) 20 Mg Tablet 20 MG PO DAILY Prescribed by: NUNU HENRY MD Enoxaparin Sodium (Enoxaparin Sodium) 40 Mg/0.4 Ml Syringe 40 MG SUBQ Q24 Prescribed by: NUNU HENRY MD Furosemide (Furosemide) 40 Mg Tablet 40 MG PO DAILY (Reported) Lisinopril (Lisinopril) 20 Mg Tablet 20 MG PO DAILY (Reported) As needed ([Hydrocodone/Acetaminophen]) 1 TABLET TABLET 1 TABLET PO Q4H PRN PRN For Pain Prescribed by: NUNU HENRY MD Followup Plan Discharge Diet: Heart Healthy Discharge Activity: Other (physical therapy, occupational therapy) Patient Instructions Patient is being discharged to a retirement facility to continue physical and occupational therapy. Follow-up with PCP in: 1 week Dewey Garcia MD Apr 05, 2017 14:28
[2017-04-05 14:49] VITALS: BP 108/57; PULSE 70; RESP 16; O2SAT 94
--- NOTE | 2017-04-05 16:23 | NUR ---
Discharge Patient discharged from unit to SNF via wheelchair with all belongings. Transferred to wheelchair with 2PA and gait belt and front wheel walker. IV catheter DC'd intact. Vital signs stable, in no pain. Report given to Karolyn Baeza RN at [facility] in [place] at [phone].
== END 2017-04-05 16:20 | DRG 481 ==
LOC: SED 13:37 → OSC 16:16
PROVIDERS: ADMIT Internal Medicine; ATTEND Internal Medicine
PROC: 0QS606Z Reposition Right Upper Femur with Intramedullary Internal Fixation Device, Open Approach (ICD-10-PCS; principal; 2017-04-01 13:00)
PROC: 30233N1 Transfusion of Nonautologous Red Blood Cells into Peripheral Vein, Percutaneous Approach (ICD-10-PCS; 2017-04-04)
DX: S72.141A Displaced intertrochanteric fracture of right femur, initial encounter for closed fracture (principal); N17.9 Acute kidney failure, unspecified; I50.32 Chronic diastolic (congestive) heart failure; D62 Acute posthemorrhagic anemia; N39.0 Urinary tract infection, site not specified; I13.0 Hypertensive heart and chronic kidney disease with heart failure and stage 1 through stage 4 chronic kidney disease, or unspecified chronic kidney disease; W01.0XXA Fall on same level from slipping, tripping and stumbling without subsequent striking against object, initial encounter; Y93.01 Activity, walking, marching and hiking; Y92.129 Unspecified place in nursing home as the place of occurrence of the external cause; Z87.891 Personal history of nicotine dependence; Z79.82 Long term (current) use of aspirin; F32.9 Major depressive disorder, single episode, unspecified; Z85.51 Personal history of malignant neoplasm of bladder; Z85.048 Personal history of other malignant neoplasm of rectum, rectosigmoid junction, and anus; N18.3 Chronic kidney disease, stage 3 (moderate); Z66 Do not resuscitate